=== PATIENT | male | born 1950 | race Caucasian/White ===

== ENCOUNTER 2020-07-02 12:24 | Inpatient (IN) | payer OTHER, MEDICARE ==
[~2020-07-02] VITALS: Ht 172.7 cm; Wt 64.3 kg
[2020-07-02] MEDS ORDERED: ECOT81TA5 PO (12:55)
[2020-07-02] MEDS ORDERED: OXYC-517 PO (12:55)
[2020-07-02] MEDS ORDERED: D3 +TAB PO (12:55)
[2020-07-02] MEDS ORDERED: TREL1AER PO (12:55)
[2020-07-02] MEDS ORDERED: ALBU83IN NEB (12:55)
[2020-07-02] MEDS ORDERED: DICL50TA2 PO (12:55)
[2020-07-02] MEDS ORDERED: GABA-843 PO (12:55)
--- NOTE | 2020-07-02 14:32 | REPVR ---
PROCEDURE INFORMATION: Exam: CT Head Without Contrast Exam date and time: 07/02/2020 2:12 PM Age: 70 years old Clinical indication: Syncope and collapse TECHNIQUE: Imaging protocol: Computed tomography of the head without contrast. Radiation optimization: All CT scans at this facility use at least one of these dose optimization techniques: automated exposure control; mA and/or kV adjustment per patient size (includes targeted exams where dose is matched to clinical indication); or iterative reconstruction. COMPARISON: No relevant prior studies available. FINDINGS: Brain: The brain demonstrates diffuse volume loss. There is white matter hypodensity most consistent with chronic small vessel ischemic change. No visible evolving territorial infarct. No hemorrhage. Cerebral ventricles: The ventricles are mildly enlarged in keeping with volume loss. Bones/joints: No acute calvarial fracture seen. Paranasal sinuses: Visualized sinuses are unremarkable. No fluid levels. Mastoid air cells: Visualized mastoid air cells are well aerated. Orbital cavity: Focal calcification at the right optic nerve head consistent with drusen. Soft tissues: Unremarkable. IMPRESSION: No acute intracranial abnormality seen. Electronically signed by: Landy Mosher On 07/02/2020 14:32:08 PM
[2020-07-02 14:34] LABS: BASO # 0.1 10^3/uL (0.0-0.2); BASO % 0.7 % (0.0-1.0); EOS # 0.3 10^3/uL (0.0-0.5); EOS % 4.3 % (0.0-3.0); HEMATOCRIT 49.3 % (42.0-52.0); HEMOGLOBIN 15.8 g/dl (13.5-17.5); LYMPH # 1.6 10^3/uL (1.5-5.0); MEAN CORPUSCULAR HEMOGLOBIN 32.4 pg (27.0-33.0); MEAN CORPUSCULAR VOLUME 101.2 fl (80.0-96.0); MONO # 0.6 10^3/uL (0.0-0.8); MONO % 7.7 % (0.0-5.0); NEUTROPHILS # 4.9 10^3/uL (1.5-8.5); NEUTROPHILS % 65.9 % (36.0-66.0); PLATELET COUNT, AUTOMATED 322 10^3/uL (150-450); RED BLOOD COUNT 4.87 10^6/uL (4.30-6.10); WHITE BLOOD COUNT 7.4 10^3/uL (4.0-10.0)
[2020-07-02 15:15] LABS: BLOOD UREA NITROGEN 19 MG/DL (7-18); CALCIUM LEVEL 9.6 MG/DL (8.8-10.2); CARBON DIOXIDE LEVEL 31 MEQ/L (21-32); CHLORIDE LEVEL 106 MEQ/L (98-107); CK-MB VALUE MASS 3.6 NG/ML (<3.6); CPK CREATINE PHOSPHOKINASE 61 U/L (39-308); CREATININE FOR GFR 0.77 MG/DL (0.70-1.30); GLOMERULAR FILTRATION RATE > 60.0 (>42); GLUCOSE, FASTING 90 MG/DL (70-100); MAGNESIUM LEVEL 1.9 MG/DL (1.8-2.4); POTASSIUM SERUM 4.5 MEQ/L (3.5-5.1); SODIUM LEVEL 140 MEQ/L (136-145); TROPONIN I 0.07 NG/ML (< 0.10)
[2020-07-02 17:01] VITALS: BP 141/89
--- NOTE | 2020-07-02 17:06 | HPEPDOC ---
[facility] Medical History & Physical Date of Admission Jul 02, 2020 Date of Service: Jul 02, 2020 History and Physical CHIEF COMPLAINT: DIZZINESS HPI/Hospital Course: 70M for episode of dizziness this morning, lasted about an hour. Stated had a previous episode yesterday that lasted about an hour as well. Denies chest pain, shortness of breath, headaches, N/V/D, abdominal pain. Patient was planned for admission for further evaluation and treatment but left AMA. PAST MEDICAL HISTORY: #brain aneurysm - follows with [facility] #AAA - 3.5cm #carotid artery disease - recent imaging April 2020 ALLERGIES: Please see below. REVIEW OF SYSTEMS: Negative except as per HPI. HOME MEDICATIONS: Please see below. LABORATORY DATA: See below. MICROBIOLOGY: Please see below. ASSESSMENT: 70M for two episodes near syncope/dizziness over past two days, non- vertiginous, no other associated complaints, with PMHx brain aneurysm, carotid artery disease, AAA. PLAN: Patient decided to leave AMA Prognosis: Guarded Time Spent on Discharge: 35 minutes Vital Signs Vital Signs Date Time Temp Pulse Resp B/P (MAP) Pulse Ox O2 Delivery O2 Flow Rate FiO2 07/02/20 15:30 129/83 (98) 07/02/20 15:24 89 92 07/02/20 14:43 Room Air 07/02/20 12:26 98.0 22 Laboratory Data Labs 24H Laboratory Tests 2 07/02/20 14:03: Immature Granulocyte % (Auto) 0.4, Neutrophils (%) (Auto) 65.9, Lymphocytes (%) (Auto) 21.0L, Monocytes (%) (Auto) 7.7H, Eosinophils (%) (Auto) 4.3H, Basophils (%) (Auto) 0.7, Neutrophils # (Auto) 4.9, Lymphocytes # (Auto) 1.6, Monocytes # (Auto) 0.6, Eosinophils # (Auto) 0.3, Basophils # (Auto) 0.1, Nucleated Red Blood Cells % (auto) 0.0, Anion Gap 3L, Glomerular Filtration Rate > 60.0, Calcium Level 9.6, Magnesium Level 1.9, Total Creatine Kinase 61, Creatine K inase MB 3.6, Creatine Kinase MB Relative Index 5.90H, Troponin I 0.07, Thyroid Stimulating Hormone (TSH) 2.570 07/02/20 15:48: Coronavirus (COVID-19)(PCR) NEGATIVE CBC/BMP Laboratory Tests 07/02/20 14:03 Home Medications Scheduled Aspirin (Ecotrin) 81 Mg Tablet.dr, 81 MG PO DAILY Cholecalciferol (Vitamin D3) (Vitamin D3) 1,000 Unit Tablet, 1,000 UNITS PO DAILY Fluticasone/Umeclidin/Vilanter (Trelegy Ellipta 100-62.5-25) 1 Each Blst.w.dev, 1 PUFF PO DAILY Gabapentin (Gabapentin) 300 Mg Capsule, 300 MG PO TID Scheduled PRN Albuterol Sulf (Albuterol Sulfate) 2.5 Mg/3 Ml Vial.neb, 1 VIAL NEB Q4H PRN for SOB/WHEEZING Diclofenac Potassium (Diclofenac Potassium) 50 Mg Tablet, 50 MG PO BID PRN for PAIN Oxycodone HCl (Oxycodone HCl) 5 Mg Tablet, 5 MG PO BID PRN for PAIN Allergies Coded Allergies: ibuprofen (Verified Adverse Reaction, Mild, upset stomach, 07/02/20) A-FIB/CHADSVASC A-FIB History Current/History of A-Fib/PAF?: No JEROMY CURRY MD Jul 02, 2020 17:06
[2020-07-02] MEDS ORDERED: D31000TA2 PO (17:17)
--- NOTE | 2020-07-02 23:58 | ECGEPIP ---
[facility] - ED Test Date: 2020-07-02 Pat Name: JYOTHI YATES Department: Room: - Gender: Male Tile Ditcher: : 1950 Requested By: LUDA KULKARNI Order Number: [id number] Reading MD: Rashard Cota Measurements Intervals [place] Rate: 87 P: 73 PA: 137 QRS: 49 QRSD: 100 T: 56 QT: 374 QTc: 452 Interpretive Statements SINUS RHYTHM POOR R WAVE PROGRESSION NO PRIORS FOR COMPARISON Electronically Signed on 07-02-2020 23:58:52 EST by Rashard Cota
--- NOTE | 2020-07-03 06:36 | DS.PDOC ---
Discharge Summary General Date of Admission Jul 02, 2020 at 16:56 Date of Discharge 07/02/20 Discharge Summary CHIEF COMPLAINT: DIZZINESS HPI/Hospital Course: 70M for episode of dizziness this morning, lasted about an hour. Stated had a previous episode yesterday that lasted about an hour as well. Denies chest pain, shortness of breath, headaches, N/V/D, abdominal pain. Patient was planned for admission for further evaluation and treatment but left AMA. PAST MEDICAL HISTORY: #brain aneurysm - follows with [facility] #AAA - 3.5cm #carotid artery disease - recent imaging April 2020 ALLERGIES: Please see below. REVIEW OF SYSTEMS: Negative except as per HPI. HOME MEDICATIONS: Please see below. LABORATORY DATA: See below. MICROBIOLOGY: Please see below. ASSESSMENT: 70M for two episodes near syncope/dizziness over past two days, non- vertiginous, no other associated complaints, with PMHx brain aneurysm, carotid artery disease, AAA. PLAN: Patient left AMA Prognosis: Guarded Time Spent on Discharge: 35 minutes Vital Signs/I&Os Vital Signs Date Time Temp Pulse Resp B/P (MAP) Pulse Ox O2 Delivery O2 Flow Rate FiO2 07/02/20 17:01 91 22 141/89 (106) 93 Room Air 07/02/20 12:26 98.0 Laboratory Data Labs 24H Laboratory Tests 2 07/02/20 14:03: Immature Granulocyte % (Auto) 0.4, Neutrophils (%) (Auto) 65.9, Lymphocytes (%) (Auto) 21.0L, Monocytes (%) (Auto) 7.7H, Eosinophils (%) (Auto) 4.3H, Basophils (%) (Auto) 0.7, Neutrophils # (Auto) 4.9, Lymphocytes # (Auto) 1.6, Monocytes # (Auto) 0.6, Eosinophils # (Auto) 0.3, Basophils # (Auto) 0.1, Nucleated Red Blood Cells % (auto) 0.0, Anion Gap 3L, Glomerular Filtration Rate > 60.0, Calcium Level 9.6, Magnesium Level 1.9, Total Creatine Kinase 61, Creatine Kinase MB 3.6, Creatine Kinase MB Relative Index 5.90H, Troponin I 0.07, Thyroid Stimulating Hormone (TSH) 2.570 07/02/20 15:48: Coronavirus (COVID-19)(PCR) NEGATIVE CBC/BMP Laboratory Tests 07/02/20 14:03 Discharge Medications Scheduled Aspirin (Ecotrin) 81 Mg Tablet.dr, 81 MG PO DAILY, (Reported) Cholecalciferol (Vitamin D3) (Vitamin D3) 1,000 Unit Tablet, 1,000 UNITS PO DAILY, (Reported) Fluticasone/Umeclidin/Vilanter (Trelegy Ellipta 100-62.5-25) 1 Each Blst.w.dev, 1 PUFF PO DAILY, (Reported) Gabapentin (Gabapentin) 300 Mg Capsule, 300 MG PO TID, (Reported) Scheduled PRN Albuterol Sulf (Albuterol Sulfate) 2.5 Mg/3 Ml Vial.neb, 1 VIAL NEB Q4H PRN for SOB/WHEEZING, (Reported) Diclofenac Potassium (Diclofenac Potassium) 50 Mg Tablet, 50 MG PO BID PRN for PAIN, (Reported) Oxycodone HCl (Oxycodone HCl) 5 Mg Tablet, 5 MG PO BID PRN for PAIN, (Reported) Allergies Coded Allergies: ibuprofen (Verified Adverse Reaction, Mild, upset stomach, 07/02/20) JEROMY CURRY MD Jul 03, 2020 06:36
== END 2020-07-02 17:40 | disposition left against medical advice (07) | DRG 312 ==
LOC: M ED 12:24 → M ED INP 16:56
PROVIDERS: ADMIT Internal Medicine; ATTEND Internal Medicine
DX: R55 Syncope and collapse (principal); I67.81 Acute cerebrovascular insufficiency; I71.4 Abdominal aortic aneurysm, without rupture; R42 Dizziness and giddiness; Z79.82 Long term (current) use of aspirin; Z79.899 Other long term (current) drug therapy; Z88.6 Allergy status to analgesic agent; Z20.828 Contact with and (suspected) exposure to other viral communicable diseases

== ENCOUNTER → 2020-08-11 | Outpatient (CLI) | payer OTHER, MEDICARE ==
[~2020-08-11] MED LIST: ALBU83IN NEB; D3 +TAB PO; D31000TA2 PO; DICL50TA2 PO; ECOT81TA5 PO; GABA-843 PO; OXYC-517 PO; TREL1AER PO
== END ==
LOC: M LABSMTC 10:35
PROVIDERS: ATTEND Anesthesiology
DX: Z01.812 Encounter for preprocedural laboratory examination (principal); Z20.828 Contact with and (suspected) exposure to other viral communicable diseases

== ENCOUNTER 2020-08-15 09:50 | Day surgery (SDC) | payer OTHER ==
[~2020-08-15] VITALS: Ht 172.7 cm; Wt 65.3 kg
[2020-08-15] MEDS ORDERED: NS 1,000 ML IV ONE (10:30)
[2020-08-15] MEDS ORDERED: propofoL 200 MG/20 ML VIAL As Ordered ONE (11:31)
[2020-08-15] MEDS ORDERED: fentaNYL 100 MCG/2 ML INJECTION (J3010) As Ordered ONE (11:31)
[2020-08-15] MEDS ORDERED: LIDOCAINE 2% 100MG/5ML SDV (FOR ANES.) As Ordered ONE (11:31)
--- NOTE | 2020-08-15 12:14 | ROOR ---
Patient Name: Nayan Rodriguez Procedure Date: 08/15/2020 11:55 AM Date of : 1950 Age: 70 Room: [facility] Gender: Male Note Status: Finalized Procedure: Upper GI endoscopy Indications: Surveillance for malignancy due to personal history of esophageal cancer, Dysphagia Providers: Ras Swift Jr, MD Referring MD: [facility], Admin. Requesting Provider: Medicines: Propofol per Anesthesia Complications: No immediate complications. Procedure: Pre-Anesthesia Assessment: - Prior to the procedure, a History and Physical was performed, and patient medications and allergies were reviewed. The patient is competent. The risks and benefits of the procedure and the sedation options and risks were discussed with the patient. All questions were answered and informed consent was obtained. Patient identification and proposed procedure were verified by the physician and the nurse in the pre-procedure area and in the procedure room. Mental Status Examination: alert and oriented. Airway Examination: normal oropharyngeal airway and neck mobility. Respiratory Examination: clear to auscultation. CV Examination: normal. ASA Grade Assessment: III - A patient with severe systemic disease. After reviewing the risks and benefits, the patient was deemed in satisfactory condition to undergo the procedure. The anesthesia plan was to use moderate sedation / analgesia (conscious sedation). Immediately prior to administration of medications, the patient was re-assessed for adequacy to receive sedatives. The heart rate, respiratory rate, oxygen saturations, blood pressure, adequacy of pulmonary ventilation, and response to care were monitored throughout the procedure. The physical status of the patient was re-assessed after the procedure. The Endoscope was introduced through the mouth, and advanced to the second part of duodenum. The upper GI endoscopy was accomplished without difficulty. The patient tolerated the procedure well. Findings: The upper third of the esophagus, middle third of the esophagus and lower third of the esophagus were normal. The cardia, gastric fundus and gastric body were normal. Localized mild inflammation characterized by congestion (edema), erythema, friability and granularity was found in the gastric antrum. Patchy moderate inflammation characterized by congestion (edema), erythema, friability and granularity was found in the duodenal bulb and in the first portion of the duodenum. The second portion of the duodenum was normal. Abnormal motility was noted in the middle third of the esophagus and in the lower third of the esophagus. There is spasticity of the esophageal body. The distal esophagus/lower esophageal sphincter is spastic, but gives up passage to the endoscope. Impression: - Normal upper third of esophagus, middle third of esophagus and lower third of esophagus. - Normal cardia, gastric fundus and gastric body. - Gastritis. - Duodenitis. - Normal second portion of the duodenum. - No specimens collected. Recommendation: - Discharge patient to home (ambulatory). - Return to my office at appointment to be scheduled. Procedure Code(s): --- Professional --- 04740, Esophagogastroduodenoscopy, flexible, transoral; diagnostic, including collection of specimen(s) by brushing or washing, when performed (separate procedure) Diagnosis Code(s): --- Professional --- K29.70, Gastritis, unspecified, without bleeding K29.80, Duodenitis without bleeding Z85.01, Personal history of malignant neoplasm of esophagus R13.10, Dysphagia, unspecified CPT copyright 2019 [employer]. All rights reserved. The codes documented in this report are preliminary and upon spanish moss picker review may be revised to meet current compliance requirements. Ras Swift MD Ras Swift Jr, MD 08/15/2020 12:14:34 PM Electronically signed by Ras Swift Jr, MD Number of Addenda: 0 Note Initiated On: 08/15/2020 11:55 AM Estimated Blood Loss: Estimated blood loss: none.
[2020-08-15] MEDS ORDERED: PHENYLephrine HCL 500 MCG/5 ML (100MCG/ML) SYRINGE (J2370) As Ordered ONE (12:26)
--- NOTE | 2020-08-15 12:27 | ROOR ---
Patient Name: Nayan Rodriguez Procedure Date: 08/15/2020 11:56 AM Date of : 1950 Age: 70 Room: [facility] Gender: Male Note Status: Finalized Procedure: Colonoscopy Indications: High risk colon cancer surveillance: Personal history of colonic polyps Providers: Ras Swift Jr, MD Referring MD: [facility] Mar[facility], Admin. Requesting Provider: Medicines: Propofol per Anesthesia Complications: No immediate complications. Procedure: Pre-Anesthesia Assessment: - Prior to the procedure, a History and Physical was performed, and patient medications and allergies were reviewed. The patient is competent. The risks and benefits of the procedure and the sedation options and risks were discussed with the patient. All questions were answered and informed consent was obtained. Patient identification and proposed procedure were verified by the physician and the nurse in the pre-procedure area and in the procedure room. Mental Status Examination: alert and oriented. Airway Examination: normal oropharyngeal airway and neck mobility. Respiratory Examination: clear to auscultation. CV Examination: normal. ASA Grade Assessment: III - A patient with severe systemic disease. After reviewing the risks and benefits, the patient was deemed in satisfactory condition to undergo the procedure. The anesthesia plan was to use moderate sedation / analgesia (conscious sedation). Immediately prior to administration of medications, the patient was re-assessed for adequacy to receive sedatives. The heart rate, respiratory rate, oxygen saturations, blood pressure, adequacy of pulmonary ventilation, and response to care were monitored throughout the procedure. The physical status of the patient was re-assessed after the procedure. The Colonoscope was introduced through the anus and advanced to the cecum, identified by appendiceal orifice and ileocecal valve. The colonoscopy was performed without difficulty. The patient tolerated the procedure well. The quality of the bowel preparation was adequate. Findings: The rectum, recto-sigmoid colon, transverse colon, ascending colon, cecum, appendiceal orifice and ileocecal valve appeared normal. Multiple small and large-mouthed diverticula were found in the sigmoid colon. A small polyp was found in the splenic flexure. The polyp was removed with a jumbo cold forceps. Resection and retrieval were complete. Non-bleeding external and internal hemorrhoids were found during endoscopy. The hemorrhoids were Grade II (internal hemorrhoids that prolapse but reduce spontaneously) and Grade III (internal hemorrhoids that prolapse but require manual reduction). Impression: - The rectum, recto-sigmoid colon, transverse colon, ascending colon, cecum, appendiceal orifice and ileocecal valve are normal. - Diverticulosis in the sigmoid colon. - One small polyp at the splenic flexure, removed with a jumbo cold forceps. Resected and retrieved. - Non-bleeding external and internal hemorrhoids. Recommendation: - Discharge patient to home (ambulatory). - Return to my office at appointment to be scheduled. Procedure Code(s): --- Professional --- 71629, Colonoscopy, flexible; with biopsy, single or multiple Diagnosis Code(s): --- Professional --- Z86.010, Personal history of colonic polyps K64.2, Third degree hemorrhoids K63.5, Polyp of colon K57.30, Diverticulosis of large intestine without perforation or abscess without bleeding CPT copyright 2019 [employer]. All rights reserved. The codes documented in this report are preliminary and upon bsw review may be revised to meet current compliance requirements. Ras Swift MD Ras Swift Jr, MD 08/15/2020 12:27:57 PM Electronically signed by Ras Swift Jr, MD Number of Addenda: 0 Note Initiated On: 08/15/2020 11:56 AM Estimated Blood Loss: Estimated blood loss: none.
[2020-08-15] MEDS ORDERED: ePHEDrine SULFATE 25 MG/5 ML(5MG/ML) SYRINGE As Ordered ONE (12:28)
[2020-08-15 13:32] VITALS: BP 118/66
== END 2020-08-15 13:10 | disposition home or self-care (01) ==
LOC: M OPP 09:50
PROVIDERS: ATTEND Surgery
DX: Z12.11 Encounter for screening for malignant neoplasm of colon (principal); Z86.010 Personal history of colon polyps; K64.2 Third degree hemorrhoids; K63.5 Polyp of colon; K57.30 Diverticulosis of large intestine without perforation or abscess without bleeding; R13.10 Dysphagia, unspecified; Z85.01 Personal history of malignant neoplasm of esophagus; K29.80 Duodenitis without bleeding; K29.70 Gastritis, unspecified, without bleeding
CPT/HCPCS: 43235; 45380; 88305; J2370; J3010

== ENCOUNTER → 2020-11-19 | Outpatient (CLI) | payer OTHER ==
[~2020-11-19] MED LIST changes: +GABA-282 PO; -GABA-843 PO; +ISOVUE-370 76% 100ML VIAL As Ordered ONE
[2020-11-19 09:02] LABS: GLOMERULAR FILTRATION RATE > 60.0 (>42)
--- NOTE | 2020-11-19 15:56 | REP ---
INDICATION: 6 MONTH FOLLOW UP,CEREBRAL ANEURYSM, NONRUPTURED/LABS 1ST. COMPARISON: CTA of the head 04/16/2020 outside examination.. TECHNIQUE: Multiplanar CT angiogram of the brain with MIP reformations. FINDINGS: As noted on the comparison study, there is a somewhat lobulated aneurysmal dilatation of the left MCA bifurcation, measures approximately 8 mm AP x 4 mm transverse by 3 mm cephalo caudad. The dimensions are not significantly changed from previous. On the remainder of the examination, the vertebral arteries are codominant. The basilar artery and hr payroll coordinator are unremarkable. He internal carotid arteries, proximal and distal MCA branches are unremarkable. A1 segments and NATHANAEL branches are unremarkable. IMPRESSION: 1. Again seen somewhat lobulated outpouching and aneurysmal dilatation at the left MCA bifurcation, not significantly changed from the comparison study of 04/16/2020. 2. The remainder of the CT angiogram of the brain is unremarkable. <Electronically signed by Noe Almaraz > 11/19/20 [id number]
== END ==
LOC: M LAB 08:19
PROVIDERS: ATTEND Physician Assistant Medical
DX: I67.1 Cerebral aneurysm, nonruptured (principal)
CPT/HCPCS: 36415; 70496; 82565; Q9967

== ENCOUNTER → 2021-02-14 | Outpatient (CLI) | payer OTHER ==
[~2021-02-14] MED LIST changes: +BUSP10TA PO; +HEPA10IN30 IV; +HYDR-3363 PO; -ISOVUE-370 76% 100ML VIAL As Ordered ONE; +NICO4GUM43 MT; +SERT-141 PO; +[UNRECOGNIZED DRUG - CODE] IV
== END ==
LOC: M LABSMTC 09:33
PROVIDERS: ATTEND Nurse Practitioner Family
DX: Z01.812 Encounter for preprocedural laboratory examination (principal); Z20.822 Contact with and (suspected) exposure to COVID-19

== ENCOUNTER → 2021-02-19 | Outpatient (CLI) | payer OTHER ==
[~2021-02-19] MED LIST changes: +MIDAZOLAM INJ 2MG/2ML VIAL (J2250 PER 1MG) As Ordered ONE; +PROHANCE 279.3MG/ML 15ML VIAL As Ordered ONE
--- NOTE | 2021-02-19 12:40 | REP ---
INDICATION: CERVICAL DISC DISORDER. Status post ACDF. COMPARISON: None. TECHNIQUE: Sagittal and axial T1 and T2-weighted scans are acquired in the usual fashion with and without fat saturation. Sequences include spin echo, turbo spin-echo, and STIR imaging sequences. Post gadolinium enhanced imaging is acquired. The gadolinium enhancement dose is 12 mL of intravenous ProHance. FINDINGS: There is reversal of normal cervical lordosis. Magnetic field susceptibility artifact is seen emanating from the ventral discectomy and fusion plating which is noted in place across the C4 through C7 levels. The cervical cord is normal in course, caliber and signal intensity on T1 and T2 weighted scans. Craniocervical junction is unremarkable. Axial and sagittal images taken at the C2-3 disc level demonstrate minimal central disc bulging. No other significant abnormality. At C3-C4, there is mild diffuse disc bulging. Facet hypertrophy is present bilaterally, right greater than left. There is mild diffuse disc bulging and mild bilateral uncovertebral spurring is seen producing mild bilateral neural foraminal narrowing. At C4-C5, there is posterior osteophytic ridging which indents the ventral margin of the thecal sac and the ventral margin of the cord is flattened. There is left-sided uncovertebral spurring producing left-sided neural foraminal narrowing. This is mild. At C 5 C6, there is mild diffuse disc bulging. There is some residual neural foraminal narrowing bilaterally at C5-6. No spinal stenosis or cord compression is seen. At C6-C7, there is no evidence of disc protrusion or cord compression. No neural foraminal narrowing is appreciated. At C7 T1, there is minimal diffuse disc bulging. No other finding. The there is mild diffuse disc bulging and disc space narrowing at the T2-T3 level in the upper thoracic spine. Post gadolinium enhanced images of the cervical spine show no significant intraspinal or perispinal contrast enhancement. IMPRESSION: Reversal of normal cervical lordosis with a ventral discectomy and fusion plating C4 through C7. Degenerative disc and facet changes at C3-4. Posterior osteophytic ridging C4-5. Mild neural foraminal narrowing as above. <Electronically signed by Moody Ash > 02/19/21 [id number]
--- NOTE | 2021-02-19 12:44 | REP ---
INDICATION: POST LAMIENCTOMY SYNDROME. COMPARISON: None. TECHNIQUE: Sagittal and axial T1 and T2-weighted scans are acquired in the usual fashion with and without fat saturation. Sequences include spin echo, turbo spin-echo, and STIR imaging sequences. 12 mL of intravenous ProHance is administered and post gadolinium enhanced axial and sagittal images are included. FINDINGS: Thoracic vertebral body heights are preserved. Alignment is normal. Cortical and medullary bone signal intensity are normal. The thoracic cord is normal in course, caliber and signal intensity on T1 and T2 weighted scans. The tip of the conus is normal in position and appearance at L1. At at T1-2, there is no abnormality. At T2-T3 there is central disc bulging effacing the ventral subarachnoid space. There is no other evidence of thoracic disc protrusion or significant bulging. No cord compressive lesion is seen. No thoracic neural foraminal lesion is observed. No extra-spinal abnormality is observed. Post gadolinium enhanced images show no abnormal intraspinal or perispinal contrast enhancement. IMPRESSION: Disc bulging at at T2-T3. Otherwise negative MRI study of the thoracic spine. <Electronically signed by Moody Ash > 02/19/21 [id number]
--- NOTE | 2021-02-19 12:52 | REP ---
INDICATION: POST LAMIENCTOMY SYNDROME. COMPARISON: None. TECHNIQUE: Sagittal and axial T1 and T2-weighted scans are acquired in the usual fashion with and without fat saturation. Sequences include spin echo, turbo spin-echo, and STIR imaging sequences. 12 mL of intravenous ProHance is administered and post gadolinium enhanced T1 axial and sagittal images are acquired. FINDINGS: There is straightening of the normal lumbar lordosis. Extensive fusion is seen in the thoracic spine. There are transpedicle screws with attendant metallic field susceptibility artifacts through the L2, L3, and L4 level bilaterally. Disc spacer metallic component artifacts are seen at L2-3 and L3-4. There is bony ankylosis across the L4-5 and the posterior portion of the L5-S1 disc spaces as well. Bony ankylosis of the L 5 S1 facet joints is seen bilaterally Incidental note is made of a distal abdominal aortic aneurysm which measures 3.4 cm in greatest anteroposterior dimension. At the L1-2 disc level, there is a broad-based moderate to large-sized disc bulge effacing the ventral subarachnoid space and producing mild central canal stenosis in combination with some facet hypertrophy. The midline AP dimension of the thecal sac at the L1-2 level is 9.7 mm. There is bilateral neural foraminal encroachment from foraminal segment disc bulging. Degenerative narrowing of the L1-2 disc is observed. There is minimal posterior osteophytic ridging at the fused L2-3 disc. Minimal central disc bulging is seen at L3-4. The posterior margin of the L4-5 and L5-S1 discs are fused. No neural foraminal encroachment is seen at the fused levels. Post gadolinium enhanced images show no significant intraspinal or perispinal gadolinium enhancement. IMPRESSION: 1. There is a 3.4 cm infrarenal abdominal AA aortic aneurysm. 2. Extensive lumbar spine fusion L2 through S1 with posterior element and ventral disc fusion as above. 3. Broad-based large disc bulge at L1-2 producing central canal stenosis and bilateral neural foraminal narrowing. <Electronically signed by Moody Ash > 02/19/21 [id number]
[2021-02-19 13:00] VITALS: BP 117/64
== END ==
LOC: M RAD 08:18
DX: M50.03 Cervical disc disorder with myelopathy, cervicothoracic region (principal); I71.4 Abdominal aortic aneurysm, without rupture; M99.53 Intervertebral disc stenosis of neural canal of lumbar region; M50.31 Other cervical disc degeneration, high cervical region
CPT/HCPCS: 72156; 72157; 72158; A9576; J2250

== ENCOUNTER → 2021-03-18 | Outpatient (CLI) | payer OTHER ==
[~2021-03-18] MED LIST changes: +DICL50TAB PO; +ENSULIQ9 PO; -MIDAZOLAM INJ 2MG/2ML VIAL (J2250 PER 1MG) As Ordered ONE; +NICO4GUM42 MT; -PROHANCE 279.3MG/ML 15ML VIAL As Ordered ONE; +ZOLO100T PO
== END ==
LOC: M PLARAD 09:25
PROVIDERS: ATTEND Nurse Practitioner Family
DX: C34.90 Malignant neoplasm of unspecified part of unspecified bronchus or lung (principal); Z85.01 Personal history of malignant neoplasm of esophagus; Z79.51 Long term (current) use of inhaled steroids; Z79.82 Long term (current) use of aspirin; Z79.899 Other long term (current) drug therapy; Z79.891 Long term (current) use of opiate analgesic
CPT/HCPCS: 78815; A9552

== ENCOUNTER → 2021-04-09 | Outpatient (CLI) | payer OTHER ==
[~2021-04-09] MED LIST changes: -DICL50TAB PO; -ENSULIQ9 PO; -NICO4GUM42 MT; -ZOLO100T PO
--- NOTE | 2021-04-09 16:23 | RADONC.CN ---
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 He relocated to [place] and on surveillance CT from 10/2020 was found to have a RUL nodule consistent with NSCLC versus metastasis. He underwent biopsy on 02/22/21 which returned SCC with PDL1 expression >50%, equivocal if metastasis or de hilaria primary NSCLC. He underwent PET-CT on 03/25/21 which revealed the RUL nodule as the only focus of concern. He is seen today for consideration of SBRT to the solitary RUL lesion. Diagnosis/Treatment History Oncologic History August 2019 diagnosed with [id number] distal esophageal SCC. He was deemed inoperable and underwent chemoradiation 54 Gy in 30 fractions with carbo/taxol completed in November 2019. Treatment was conducted in [place] where he had been living for many years. In early 2020 he and his relocated to [place] (where they both grew up) and he established with the [facility]. Surveillance CT scans from 10/2020 showed a solitary RUL nodule <2 cm. Subsequent studies demonstrated growth to ~ 2 cm in the absence of other foci suggestive of cancer. He underwent biopsy on 02/22/21 which showed SCC which was indeterminate as to primary NSCLC or metastasis from esophageal SCC. PDL1 was >50% (TPS). He underwent PET-CT on 03/18/21 ([facility]) which showed hypermetabolism in the RUL nodule and no additional foci concerning for metastasis. PFTs not on file, ordered Interval History Nayan reports he is on 2-4 L O2 continuously depending on level of activity. He continues to smoke. He drinks daily. He is and lives in [place]. He has no chest pain. He does have chronic back pain, as well a number of vascular concerns, such as carotid stenosis, and LE PVD. He has been having stable weight recently. He has some mild dysphagia persistent s/p chemoradiation for his esophageal cancer. Past Medical History: AAA Brain aneuysm COPD Spinal stenosis Past Surgical History: Spinal fusions C4-6 L2-S1 Family History: No contributory family cancer history Social History: Current 1-2 ppd smoker >50 pack year history Current drinker 2-3 beers per day Allergies / Meds Allergies: Coded Allergies: ibuprofen (Verified Adverse Reaction, Mild, upset stomach, 08/02/20) Home Meds Reported Medications Sodium Chloride 0.9 % (Flush) ([place] Sodium Chlor Flush) 0.9 % Syringe, 10 ML IV MTHLY, SYRINGE 02/04/21 Hydroxyzine HCl (Hydroxyzine HCl) 25 Mg Tablet, 25 MG PO DAILYPRN PRN for ANXIETY/AGITATION for 30 Days, #60 TAB 02/04/21 Heparin Sodium,Porcine/Pf (Heparin 100 Unit/10 ml (10/ml)) 10 Unit/1 Ml Syringe, 3 UNIT IV MTHLY PRN for SEE LABEL COMMENTS, SYRINGE 02/04/21 Gabapentin (Gabapentin) 300 Mg Capsule, 300 MG PO TID, CAP 02/04/21 Buspirone HCl (Buspirone HCl) 10 Mg Tablet, 10 MG PO, TAB 02/04/21 Cholecalciferol (Vitamin D3) (Vitamin D3) 1,000 Unit Tablet, 2000 UNITS PO DAILY, TAB 07/02/20 Fluticasone/Umeclidin/Vilanter (Trelegy Ellipta 100-62.5-25) 1 Each Blst.w.dev, 1 PUFF PO DAILY 07/02/20 Oxycodone HCl (Oxycodone HCl) 5 Mg Tablet, 5 MG PO BID PRN for PAIN 07/02/20 Aspirin (Ecotrin) 81 Mg Tablet.dr, 81 MG PO DAILY 07/02/20 Albuterol Sulf (Albuterol Sulfate) 2.5 Mg/3 Ml Vial.neb, 1 VIAL NEB Q4H PRN for SOB/WHEEZING 07/02/20 Review of Systems Constitutional: Denies: Chills, Fever, Fatigue Eyes: Denies: Pain HEENT: Denies: Head Aches Skin: Denies: Rash Pulmonary: Reports: Dyspnea, Cough; Denies: Pleuritic Chest Pain Cardiovascular: Reports: Orthopnea; Denies: Chest Pain, Palpitations, Edema Gastrointestinal: Denies: Abdominal Pain Hematologic: Denies: Bruising, Bleeding Excessively Endocrine: Denies: Cold Intolerance Musculoskeletal: Reports: Neck pain, Back pain Neurological: Denies: Weakness, Numbness Psych: Reports: Mood Normal Vital Signs Wt 148 lbs T 97.4 P 99 RR 20 BP 136/93 O2 88% on 2L NC Pain 0 Fatigue 0 General Exam: Alert, Cooperative, No Acute Distress Eye Exam: PERRLA EOMI ENT EXAM: Atraumatic Neck Exam: Supple Chest Exam: Clear to auscultation, Normal air movement; Negative: Rhonchi, Wheezing Heart Exam: Rate Normal, Regular Rhythm Abdomen Exam: Soft Extremity Exam: Negative: Edema Skin Exam: Nl turgor and temperature Neuro Exam: Normal Gait, Normal Speech, Cranial Nerves 3-12 NL Psych Exam: Mental status NL, Memory Intact (Excellent memory of medical history dates/times/providers), Oriented x 3 Diagnostic and Laboratory Diagnostic Review Radiologic images, relevant labs and pathology reports were personally reviewed and discussed with Mr. Rodriguez. Assessment and Plan Impression Mr. 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 He relocated to [place] and on surveillance CT from 10/2020 was found to have a RUL nodule consistent with NSCLC versus metastasis. He underwent biopsy on 02/22/21 which returned SCC with PDL1 expression >50%, equivocal if metastasis or de hilaria primary NSCLC. He underwent PET-CT on 03/25/21 which revealed the RUL nodule as the only focus of concern. He is seen today for consideration of SBRT to the solitary RUL lesion. Stage RUL NSCLC [id number] stage IA2 Performance Status ECOG 2 Plan We had an extensive discussion with Mr. Rodriguez regarding the diagnosis at hand and available therapeutic options. He has a solitary RUL nodule, indeterminate on biopsy whether SCC from esophagus or de hilaria primary NSCLC. I explained that in this situation the ultimate origin of the lesion would not change initial management from my perspective, given that it is a solitary focus, I would recommend SBRT to the lesion in either event. Decisions on whether or not he would benefit from immediate systemic therapy or more likely, observation after SBRT I defer to his medical oncologist. For treatment I will give 60 Gy in 5 fractions with DCA/4DCT/ITV planning. I wou ld then obtain a CT chest in 3 months for response assessment this could be done in conjunction with his surveillance scans for the esophageal cancer history. We discussed the logistics of receiving radiation therapy in detail including the need for a 1-time planning session. This can occur in the next week. We reviewed the side effects of SBRT, fatigue and ~5-10% risk of symptomatic pneumonitis. The peripheral location of the lesion is generally favorable such that I expect no risk of chest wall toxicity or pleuritic pain. After discussing the risks, benefits and alternatives to radiation therapy, Mr. Rodriguez was amenable to pursuing radiotherapy. All questions were answered to the patient's satisfaction. We instructed the patient that if there were any questions,concerns or changes in clinical status in the interim to contact us. Recommendations SBRT 60 Gy in 5 fractions with DCA/4DCT/ITV planning Simulation next week Billing Statement Total time of [46] minutes was spent preparing for the visit [3], obtaining HPI [13], examining the patient [2], reviewing diagnostic tests [5], discussing management options [13], coordinating care [2], and writing this note [8]. NORBERTO ISLAS MD Apr 09, 2021 16:23
== END ==
LOC: M ONCR 12:32
PROVIDERS: ATTEND General Practice
DX: C15.5 Malignant neoplasm of lower third of esophagus (principal); C34.11 Malignant neoplasm of upper lobe, right bronchus or lung; F17.210 Nicotine dependence, cigarettes, uncomplicated; G89.29 Other chronic pain; I65.29 Occlusion and stenosis of unspecified carotid artery; I67.1 Cerebral aneurysm, nonruptured; I71.4 Abdominal aortic aneurysm, without rupture; I73.9 Peripheral vascular disease, unspecified; J44.9 Chronic obstructive pulmonary disease, unspecified; M54.5 Low back pain; M48.00 Spinal stenosis, site unspecified; R13.10 Dysphagia, unspecified; Z79.899 Other long term (current) drug therapy; Z88.6 Allergy status to analgesic agent; Z92.21 Personal history of antineoplastic chemotherapy; Z92.3 Personal history of irradiation; Z98.1 Arthrodesis status; Z99.81 Dependence on supplemental oxygen

== ENCOUNTER 2021-04-13 11:29 | Inpatient (IN) | payer OTHER ==
[2021-04-13] VITALS (14 sets, daily range): BP systolic 110–168; BP diastolic 70–92; O2SAT 94
[~2021-04-13] VITALS: Ht 172.7 cm; Wt 63.5 kg
--- NOTE | 2021-04-13 12:13 | REP ---
INDICATION: CHEST PAIN COMPARISON: None. TECHNIQUE: Portable AP view of the chest FINDINGS: There is a right-sided pneumothorax of approximately 25%. The bilateral aerated lung hoffamn demonstrate chronic appearing interstitial changes. Patient has a known right upper lobe pulmonary nodule which is poorly identified by current portable chest x-ray. No effusion. The mediastinum is grossly normal and without significant contralateral shift to suggest tension pneumothorax. Left-sided Mgrwae-[id number]-Dtvs identified with tip in the SVC. Skeletal structures appear intact. IMPRESSION: Right-sided pneumothorax of approximately 25%. <Electronically signed by Teodoro Sagastume > 04/13/21 [id number]
[2021-04-13 12:18] LABS: BASO # 0.1 10^3/uL (0.0-0.2); BASO % 0.7 % (0.0-1.0); EOS # 0.2 10^3/uL (0.0-0.5); EOS % 3.5 % (0.0-3.0); HEMATOCRIT 49.9 % (42.0-52.0); HEMOGLOBIN 16.3 g/dl (13.5-17.5); LYMPH # 1.6 10^3/uL (1.5-5.0); LYMPH % 23.7 % (24.0-44.0); MEAN CORPUSCULAR HEMOGLOBIN 32.2 pg (27.0-33.0); MEAN CORPUSCULAR HGB CONC 32.7 g/dl (32.0-36.5); MEAN CORPUSCULAR VOLUME 98.6 fl (80.0-96.0); MONO # 0.6 10^3/uL (0.0-0.8); MONO % 7.9 % (2.0-8.0); NEUTROPHILS # 4.4 10^3/uL (1.5-8.5); NEUTROPHILS % 63.8 % (36.0-66.0); PLATELET COUNT, AUTOMATED 308 10^3/uL (150-450); RED BLOOD COUNT 5.06 10^6/uL (4.30-6.10); WHITE BLOOD COUNT 6.9 10^3/uL (4.0-10.0)
[2021-04-13] MEDS ORDERED: NORCO, ANEXSIA 5/325MG TABLET (HYDROcodone/ACETAMINOPHEN) PO PRN (13:00)
[2021-04-13] MEDS ORDERED: ACETAMINOPHEN TAB 650MG DOSE (2X325MG) PO PRN (13:00)
[2021-04-13] MEDS ORDERED: BISACODYL 10 MG SUPP PR PRN (13:00)
[2021-04-13] MEDS ORDERED: LEVALBUTEROL 1.25 MG/0.5 ML CONCENTRATE NEB NEB PRN (13:00)
[2021-04-13] MEDS ORDERED: ONDANSETRON 4MG/2ML VIAL IV PRN (13:00)
[2021-04-13 13:04] LABS: ALBUMIN 3.7 GM/DL (3.2-5.2); ALT/SGPT 15 U/L (12-78); BILIRUBIN,DIRECT < 0.1 MG/DL (0.0-0.2); BILIRUBIN,TOTAL 0.3 MG/DL (0.2-1.0); BLOOD UREA NITROGEN 9 MG/DL (7-18); CALCIUM LEVEL 9.3 MG/DL (8.8-10.2); CARBON DIOXIDE LEVEL 32 MEQ/L (21-32); CHLORIDE LEVEL 101 MEQ/L (98-107); CREATININE FOR GFR 0.92 MG/DL (0.70-1.30); GLOMERULAR FILTRATION RATE > 60.0 (>42); GLUCOSE, FASTING 109 MG/DL (70-100); LIPASE 201 U/L (73-393); NT-PRO BNP 490 PG/ML (<125); POTASSIUM SERUM 4.2 MEQ/L (3.5-5.1); SODIUM LEVEL 137 MEQ/L (136-145); TOTAL PROTEIN 6.9 GM/DL (6.4-8.2)
--- NOTE | 2021-04-13 13:33 | REP ---
INDICATION: pneumothorax COMPARISON: 01/24/2021 TECHNIQUE: Axial noncontrast images from the thoracic inlet to the upper abdomen with coronal and sagittal reformations. This CT examination was performed using the following dose reduction techniques: Automated exposure control, adjustment of mA and/or kv according to the patient's size, and use of iterative reconstruction technique. FINDINGS: Current examination demonstrates a moderate right pneumothorax of approximately 25-30% without mediastinal shift or pleural fluid. Minimal associated linear atelectasis in the right middle lobe and right lower lobe noted. The lung hoffman demonstrate advanced COPD/emphysematous changes with scattered significant bullae and blebs-possibly underlying cause for spontaneous pneumothorax. There is a known 1.7 cm spiculated mass in the right upper lung zone. The lung hoffman are otherwise without acute consolidation and or further mass lesion. Small noncalcified nodular densities cannot definitively be excluded based on current examination. Evaluation of the mediastinum demonstrates atherosclerotic changes to the thoracic aorta and coronary arteries without aortic aneurysm or cardiomegaly. No pericardial effusion. No obvious adenopathy is identified although evaluation is limited by the lack of contrast enhancement. A small hiatal hernia at the gastroesophageal junction is suggested. Surrounding musculoskeletal structures are intact and without acute process. Limited upper abdomen demonstrates normal bilateral adrenal glands. Evidence for prior lumbar laminectomy and posterior fixation. IMPRESSION: 1. Moderate right pneumothorax of approximately 25-30% possibly related to underlying COPD/emphysematous changes and significant bullae/blebs. 2. Known 1.7 cm spiculated mass in the right upper lobe. <Electronically signed by Teodoro Sagastume > 04/13/21 [id number]
[2021-04-13 13:49] LABS: ABG BASE EXCESS -0.2 (-2.0-2.0); ABG O2 SATURATION 96.7 % (95.0-99.0); ABG PARTIAL PRESSURE CO2 47.7 mmHg (35.0-45.0); ABG PARTIAL PRESSURE O2 88.3 mmHg (75.0-100.0); ABG STANDARD HCO3 24.3 MEQ/L (22.0-26.0); ABG TOTAL CO2 27.4 MEQ/L (23.0-31.0); ABG pH (ARTERIAL) 7.354 UNITS (7.350-7.450)
[2021-04-13] MEDS: LEVALBUTEROL 1.25 MG/0.5 ML CONCENTRATE NEB NEB SCH ×2 (13:56→19:22)
--- NOTE | 2021-04-13 14:14 | HPEPDOC ---
General Date of Admission Apr 13, 2021 at 12:58 Date of Service: Apr 13, 2021 Chief Complaint The patient is a 70-year-old male admitted with a reason for visit of Pneumothorax. Source: Patient, RN/MD History of Present Illness Mr. Rodriguez is a 70 year old meal with history of SCC of the esophagus which completed chemorads in 11/2019 and recently diagnosed RLL SCC nodule who is here for worsening dyspnea despite supplemental oxygen. Patient is chronically on 2 to 4 L of oxygen based on activity and location. On February 16, 2021, he had a lung biopsy and started to cough up blood for about 2 weeks. Then, the last few weeks, he had dyspnea and coughing up thick mucus. Otherwise, denies any recent trauma, fall, or injury. This morning, he was walking outside to the porch. He sudden had more difficulty breathing. He came inside to use the concentrator, but still had no relief. He came to the ED for evaluation. While here, he only required 2L of NC, but he was still feeling short of breath. CXR demonstrated a right sided pneumothorax approximately 25%. Dr. Murdock evaluated patient. Since patient is planning to have radiation for the RLL SCC nodule next week, Dr. Aburto son will be placing a chest tube later today. When I saw him, he was sitting up and leaning forward. He denied any an fever, abdominal pain, nausea, or diarrhea. He tells me he is still smoking, and he had to have a cigarette this morning. Patient will be admitted to PCU for pneumothorax. Home Medications Scheduled Aspirin (Ecotrin) 81 Mg Tablet., 81 MG PO DAILY, (Reported) Buspirone HCl (Buspirone HCl) 10 Mg Tablet, 10 MG PO DAILY, (Reported) Cholecalciferol (Vitamin D3) (Vitamin D3) 1,000 Unit Tablet, 2,000 UNITS PO DAILY, (Reported) Fluticasone/Umeclidin/Vilanter (Trelegy Ellipta 100-62.5-25) 1 Each Blst.w.dev, 1 PUFF PO DAILY, (Reported) Lactose-Reduced Food (Ensure Plus) 237 Ml Liquid, 237 ML PO BID, (Reported) Sertraline Hcl (Zoloft) 100 Mg Tablet, 50 MG PO DAILY, (Reported) Sodium Chloride 0.9 % (Flush) ([place] Sodium Chlor Flush) 0.9 % Syringe, 10 ML IV MTHLY, (Reported) Scheduled PRN Albuterol Sulf (Albuterol Sulfate) 2.5 Mg/3 Ml Vial.neb, 1 VIAL NEB Q4H PRN for SOB/WHEEZING, (Reported) Gabapentin (Gabapentin) 300 Mg Capsule, 300 MG PO TID PRN for PAIN LEVEL 5-10, (Reported) Heparin Sodium,Porcine/Pf (Heparin 100 Unit/10 ml (10/ml)) 10 Unit/1 Ml Syringe, 3 UNIT IV MTHLY PRN for SEE LABEL COMMENTS, (Reported) Hydroxyzine HCl (Hydroxyzine HCl) 25 Mg Tablet, 25 MG PO DAILY PRN for ANXIETY/A GITATION, (Reported) Nicotine Polacrilex (Nicotine Gum) 4 Mg Gum, 4 MG MT Q2H PRN for NICOTINE WITHDRAWAL, (Reported) Allergies Coded Allergies: ibuprofen (Verified Adverse Reaction, Mild, upset stomach, 08/02/20) Past Medical History Medical History 1. AAA 2. Brain aneurysm 3. COPD chronically on 2L to 4L of oxygen 4. Spinal stenosis 5. History of SCC of the distal esophagus s/p chemo radiation completed on 11/2019 6. RUL nodule positive for SCC, unknown if metastasis or new primary 7. Right carotid artery stenosis 8. Herniated disk in lower back and neck 9. Left rotator cuff tear 10. Cataracts Surgical History 1. Spinal fusions C4-C6 and L2-S1 2. Rotator cuff tear x2 on left Family History Father: History of brain aneurysm and cancer Mother: History of cancer Social History * Smoker: current smoker Alcohol: other (Drinks budlight daily) Drugs: denies A-FIB/CHADSVASC A-FIB History Current/History of A-Fib/PAF?: No Review of Systems Constitutional: Denies: Chills, Fever Eyes: Reports: Other (Blurry vision from cataracts) ENT: Denies: Sore Throat Skin: Denies: Rash Pulmonary: Reports: Dyspnea Cardiovascular: Reports: Other Symptoms (Chest pressure) Gastrointestinal: Denies: Nausea, Abdominal Pain, Diarrhea Genitourinary: Denies: Dysuria Hematologic: Reports: Bruising (On arms from playing with dog) Neurological: Denies: Numbness Psych: Reports: Anxiety, Depression Physical Examination General Exam: Positive: Alert, Cooperative Eye Exam: Negative: Sclera icteric ENT Exam: Positive: Atraumatic Neck Exam: Positive: Supple Chest Exam: Positive: Clear to auscultation Heart Exam: Positive: Rate Normal, Regular Rhythm Abdomen Exam: Positive: Normal bowel sounds, Soft; Negative: Tenderness Extremity Exam: Negative: Edema Neuro Exam: Positive: Normal Speech Psych Exam: Positive: Mental status NL, Mood NL Vital Signs Vital Signs Date Time Temp Pulse Resp B/P (MAP) Pulse Ox O2 Delivery O2 Flow Rate FiO2 04/13/21 12:15 Nasal Cannula 2.0 04/13/21 11:30 98.3 119 18 129/85 (100) 94 Laboratory Data Labs 24H Laboratory Tests 2 04/13/21 11:54: Immature Granulocyte % (Auto) 0.4, Neutrophils (%) (Auto) 63.8, Lymphocytes (%) (Auto) 23.7L, Monocytes (%) (Auto) 7.9, Eosinophils (%) (Auto) 3.5H, Basophils (%) (Auto) 0.7, Neutrophils # (Auto) 4.4, Lymphocytes # (Auto) 1.6, Monocytes # (Auto) 0.6, Eosinophils # (Auto) 0.2, Basophils # (Auto) 0.1, Nucleated Red Blood Cells % (auto) 0.0, Anion Gap 4L, Glomerular Filtration Rate > 60.0, Calcium Level 9.3, Total Bilirubin 0.3, Direct Bilirubin < 0.1, Aspartate Amino Transf (AST/SGOT) 18, Alanine Aminotransferase (ALT/SGPT) 15, Alkaline Phosp hatase 92, BP-Luc-H-Type Natriuretic Peptide 490H, Total Protein 6.9, Albumin 3.7, Albumin/Globulin Ratio 1.2, Lipase 201 04/13/21 12:02: POC Troponin I (Misc) 0.00 CBC/BMP Laboratory Tests 04/13/21 11:54 Assessment/Plan Mr. Rodriguez is a 70 year old meal with history of SCC of the esophagus which completed chemorads in 11/2019 and recently diagnosed RLL SCC nodule who is here for worsening dyspnea despite supplemental oxygen. He has COPD and still smoking. CT chest demonstrates blebs and bullae. Dr. Murdock was consulted by ED. Dr. Murdock will see the patient this afternoon for chest tube placement as patient has planned radiation next week. Plan / VTE VTE Prophylaxis Ordered?: Yes Plan Plan 1. Right pneumothorax -25 to 30% right pneumothorax -Thoracic surgeon, Dr. Murdock consulted by ED. Recommendations appreciated -Patient to have chest tube placed this afternoon 2. Chronic hypoxic respiratory failure -Patient at baseline oxygen requirement -Continue supplemental oxygen 3. COPD -Patient still smokes -Continue inhalers as Spiriva and Symbicort 4. Nicotine use disorder -Patient still smokes -Will add on nicotine patch 5. Anxiety/Depression -Continue Sertraline, buspirone, and PRN hydroxyzine 6. DVT ppx -Heparin Disposition: Pending clinical improvement MO WEBB DO Apr 13, 2021 13:17
[2021-04-13] MEDS ORDERED: ENSULIQ9 PO (14:20)
[2021-04-13] MEDS ORDERED: ZOLO100T PO (14:20)
[2021-04-13] MEDS ORDERED: DICL50TAB PO (14:20)
[2021-04-13] MEDS ORDERED: NICO4GUM42 MT (14:20)
[2021-04-13] MEDS ORDERED: HOME MED LIST COMPLETE! XX SCH (14:25)
[2021-04-13 14:34] LABS: RSV AMPLIFICATION NEGATIVE (NEGATIVE)
[2021-04-13] MEDS ORDERED: GABAPENTIN 300 MG CAP PO PRN (14:40)
[2021-04-13] MEDS ORDERED: hydrOXYzine 25 MG TAB PO PRN (14:40)
[2021-04-13] MEDS ORDERED: LIDOCAINE 1% MDV 20ML VIAL As Ordered ONE (15:59)
[2021-04-13] MEDS ORDERED: flumazeniL 0.5 MG/5 ML VIAL As Ordered ONE (15:59)
[2021-04-13] MEDS ORDERED: MIDAZOLAM INJ 2MG/2ML VIAL (J2250 PER 1MG) As Ordered ONE (15:59)
[2021-04-13] MEDS ORDERED: MIDAZOLAM INJ 2MG/2ML VIAL (J2250 PER 1MG) IV ONE ×2 (16:12→16:14)
[2021-04-13] MEDS ORDERED: LIDOCAINE 1% MDV 20ML VIAL SC ONE (16:15)
[2021-04-13] MEDS ORDERED: flumazeniL 0.5 MG/5 ML VIAL IV STA (16:21)
--- NOTE | 2021-04-13 16:38 | REP ---
INDICATION: S/P right chest tube placement COMPARISON: 04/13/2021 at 11:53 a.m. TECHNIQUE: Portable AP view of the chest FINDINGS: Status post right chest tube placement at the apex and previously noted pneumothorax has resolved. The lung hoffman demonstrate diffuse chronic interstitial changes. Known mass in the right upper lobe is faintly visible. No obvious acute consolidation or effusion. The mediastinum and cardiac silhouette are stable and grossly within normal limits. Pcrusz-V-Okdn identified with tip in the SVC. Skeletal structures are intact. IMPRESSION: Right apical chest tube in place and pneumothorax resolved. <Electronically signed by Teodoro Sagastume > 04/13/21 [id number]
[2021-04-13] MEDS: MOM 30ML SUSPENSION UDC PO SCH (17:03)
[2021-04-13] MEDS: SERTRALINE HCL 50 MG TAB PO SCH (17:03)
[2021-04-13] MEDS: KCL 20MEQ IN D5/NS 1000ML 1,000 ML IV SCH (17:03)
[2021-04-13] MEDS: NICOTINE 21MG/24HR 1 EA TRANSDERMAL TD SCH (17:03)
[2021-04-13] MEDS: PANTOPRAZOLE 40MG TAB (PROTONIX) PO SCH (17:03)
[2021-04-13] MEDS: busPIRone 10 MG TAB PO SCH (18:38)
[2021-04-13] MEDS: SYMBICORT 160/4.5MCG INHALER 6GM INH SCH (19:22)
[2021-04-13] MEDS: HEPARIN SOD (PORCINE) 5000UNITS/ML 1ML VIAL/SYRINGE SC SCH (20:20)
[2021-04-13] MEDS: PERCOCET 5MG/325MG TAB PO PRN ×2 (20:20→20:22)
[2021-04-13] MEDS: DOCUSATE SODIUM 100MG CAPSULE PO SCH (20:28)
--- NOTE | 2021-04-13 20:30 | ECGEPIP ---
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
[2021-04-14] VITALS (10 sets, daily range): BP systolic 121–147; BP diastolic 62–82; O2SAT 95–96
[2021-04-14] MEDS: LEVALBUTEROL 1.25 MG/0.5 ML CONCENTRATE NEB NEB SCH ×4 (01:31→19:29)
[2021-04-14] MEDS: KCL 20MEQ IN D5/NS 1000ML 1,000 ML IV SCH (01:38)
[2021-04-14] MEDS: PERCOCET 5MG/325MG TAB PO PRN ×4 (01:51→20:12)
[2021-04-14 05:30] LABS: BASO % 0.5 % (0.0-1.0); EOS # 0.2 10^3/uL (0.0-0.5); EOS % 3.7 % (0.0-3.0); LYMPH # 1.4 10^3/uL (1.5-5.0); LYMPH % 25.3 % (24.0-44.0); MEAN CORPUSCULAR HEMOGLOBIN 32.3 pg (27.0-33.0); MEAN CORPUSCULAR HGB CONC 32.6 g/dl (32.0-36.5); MEAN CORPUSCULAR VOLUME 99.1 fl (80.0-96.0); MONO # 0.4 10^3/uL (0.0-0.8); MONO % 7.2 % (2.0-8.0); NEUTROPHILS # 3.6 10^3/uL (1.5-8.5); NEUTROPHILS % 62.9 % (36.0-66.0); PLATELET COUNT, AUTOMATED 241 10^3/uL (150-450); RED BLOOD COUNT 4.34 10^6/uL (4.30-6.10); WHITE BLOOD COUNT 5.7 10^3/uL (4.0-10.0)
[2021-04-14 05:54] LABS: BLOOD UREA NITROGEN 11 MG/DL (7-18); CALCIUM LEVEL 8.9 MG/DL (8.8-10.2); CARBON DIOXIDE LEVEL 35 MEQ/L (21-32); CHLORIDE LEVEL 109 MEQ/L (98-107); CREATININE FOR GFR 0.79 MG/DL (0.70-1.30); GLOMERULAR FILTRATION RATE > 60.0 (>42); GLUCOSE, FASTING 103 MG/DL (70-100); POTASSIUM SERUM 4.4 MEQ/L (3.5-5.1); SODIUM LEVEL 143 MEQ/L (136-145)
[2021-04-14 06:09] LABS: ABG BASE EXCESS 1.3 (-2.0-2.0); ABG HCO3 28.6 MEQ/L (22.0-26.0); ABG O2 SATURATION 98.8 % (95.0-99.0); ABG PARTIAL PRESSURE CO2 56.2 mmHg (35.0-45.0); ABG STANDARD HCO3 25.7 MEQ/L (22.0-26.0); ABG TOTAL CO2 30.4 MEQ/L (23.0-31.0); ABG pH (ARTERIAL) 7.325 UNITS (7.350-7.450)
[2021-04-14] MEDS: TIOTROPIUM INHALER/CAPSULE (SPIRIVA) INH SCH (07:43)
--- NOTE | 2021-04-14 08:12 | REP ---
INDICATION: when chest tube placed COMPARISON: 04/13/2021 TECHNIQUE: PA and lateral. FINDINGS: Right apical chest tube in stable position. No obvious residual pneumothorax appreciated. Mediastinum and cardiac silhouette are within normal limits and stable. Buqaez-L-Zzxd again identified with tip in the SVC. Bilateral pleuroparenchymal changes are now identified including bibasilar atelectasis and suspected small pleural reactions. Right upper lobe mass lesion unchanged. IMPRESSION: 1. No evidence for pneumothorax. 2. New mild bibasilar atelectasis with small pleural reactions. <Electronically signed by Teodoro Sagastume > 04/14/21 0816
[2021-04-14] MEDS: DOCUSATE SODIUM 100MG CAPSULE PO SCH ×2 (08:49→20:09)
[2021-04-14] MEDS: MOM 30ML SUSPENSION UDC PO SCH (08:49)
[2021-04-14] MEDS: VITAMIN D 1,000 INTERNATIONAL UNITS TABLET PO SCH (09:12)
[2021-04-14] MEDS: ASPIRIN 81MG ENTERIC TABLET PO SCH (09:12)
[2021-04-14] MEDS: PANTOPRAZOLE 40MG TAB (PROTONIX) PO SCH (09:12)
[2021-04-14] MEDS: SERTRALINE HCL 50 MG TAB PO SCH (09:12)
[2021-04-14] MEDS: HEPARIN SOD (PORCINE) 5000UNITS/ML 1ML VIAL/SYRINGE SC SCH ×2 (09:12→20:10)
[2021-04-14] MEDS: busPIRone 10 MG TAB PO SCH (09:13)
[2021-04-14] MEDS: NICOTINE 21MG/24HR 1 EA TRANSDERMAL TD SCH (09:13)
--- NOTE | 2021-04-14 11:01 | IPNPDOC ---
Subjective Date Seen The patient was seen on 04/14/21. Subjective Chief Complaint/HPI Mr. Rodriguez is a 70 year old meal with history of SCC of the esophagus which completed chemorads in 11/2019 and recently diagnosed RLL SCC nodule who is here for worsening dyspnea despite supplemental oxygen. This morning, his breathing is better and he looks more comfortable. He reports pain from chest tube site, but that would be expected. Objective Physical Examination General Exam: Positive: Alert, Cooperative Eye Exam: Negative: Sclera icteric ENT Exam: Positive: Atraumatic Neck Exam: Positive: Supple Chest Exam: Positive: Other (He has better airation of right lung today) Heart Exam: Positive: Rate Normal, Regular Rhythm Abdomen Exam: Positive: Normal bowel sounds, Soft; Negative: Tenderness Extremity Exam: Negative: Edema Neuro Exam: Positive: Normal Speech Psych Exam: Positive: Mental status NL, Mood NL Assessment /Plan Assessment Mr. Rodriguez is a 70 year old meal with history of SCC of the esophagus which completed chemorads in 11/2019 and recently diagnosed RLL SCC nodule who is here for worsening dyspnea despite supplemental oxygen. He has COPD and still smoking. CT chest demonstrates blebs and bullae. Dr. Murdock was consulted by ED. Dr. Murdock will see the patient this afternoon for chest tube placement as patient has planned radiation next week. Plan/VTE VTE Prophylaxis Ordered?: Yes Plan 1. Right pneumothorax -25 to 30% right pneumothorax -Thoracic surgeon, Dr. Murdock consulted by ED. Recommendations appreciated -Right chest tube was placed on 04/13/21 -Today is POD #1 2. Chronic hypoxic respiratory failure -Patient at baseline oxygen requirement -Continue supplemental oxygen 3. COPD -Patient still smokes -Continue inhalers as Spiriva and Symbicort 4. Nicotine use disorder -Patient still smokes -Will add on nicotine patch 5. Anxiety/Depression -Continue Sertraline, buspirone, and PRN hydroxyzine 6. DVT ppx -Heparin Disposition: Pending clinical improvement VS, I&O, 24H, Fishbone Vital Signs/I&O Vital Signs Date Time Temp Pulse Resp B/P (MAP) Pulse Ox O2 Delivery O2 Flow Rate FiO2 04/14/21 09:42 18 97 Nasal Cannula 4.0 04/14/21 08:00 97.6 72 126/62 (83) I&O- Last 24 Hours up to 6 AM 04/14/21 06:00 Intake Total 870 ml Output Total 125 ml Balance 745 ml Laboratory Data 24H LABS Laboratory Tests 2 04/13/21 11:54: Immature Granulocyte % (Auto) 0.4, Neutrophils (%) (Auto) 63.8, Lymphocytes (%) (Auto) 23.7L, Monocytes (%) (Auto) 7.9, Eosinophils (%) (Auto) 3.5H, Basophils (%) (Auto) 0.7, Neutrophils # (Auto) 4.4, Lymphocytes # (Auto) 1.6, Monocytes # (Auto) 0.6, Eosinophils # (Auto) 0.2, Basophils # (Auto) 0.1, Nucleated Red Blood Cells % (auto) 0.0, Anion Gap 4L, Glomerular Filtration Rate > 60.0, Calcium Level 9.3, Total Bilirubin 0.3, Direct Bilirubin < 0.1, Aspartate Amino Transf (AST/SGOT) 18, Alanine Aminotransferase (ALT/SGPT) 15, Alkaline Phosphatase 92, UP-[place]-I-Type Natriuretic Peptide 490H, Total Protein 6.9, Albumin 3.7, Albumin/Globulin Ratio 1.2, Lipase 201 04/13/21 12:02: POC Troponin I (Misc) 0.00 04/13/21 13:41: Blood Gas Bicarbonate Standard 24.3, Arterial Blood pH 7.354, Arterial Blood Partial Pressure CO2 47.7H, Arterial Blood Partial Pressure O2 88.3, Arterial Blood Total CO2 27.4, Arterial Blood HCO3 26.0, Arterial Blood Base Excess -0.2, Arterial Blood Oxygen Saturation 96.7, Coronavirus (COVID-19)(PCR) NEGATIVE, Influenza Type A (RT-PCR) NEGATIVE, Influenza Type B (RT-PCR) NEGATIVE, Respiratory Syncytial Virus (PCR) NEGATIVE 04/14/21 05:00: Immature Granulocyte % (Auto) 0.4, Neutrophils (%) (Auto) 62.9, Lymphocytes (%) (Auto) 25.3, Monocytes (%) (Auto) 7.2, Eosinophils (%) (Auto) 3.7H, Basophils (%) (Auto) 0.5, Neutrophils # (Auto) 3.6, Lymphocytes # (Auto) 1.4L, Monocytes # (Auto) 0.4, Eosinophils # (Auto) 0.2, Basophils # (Auto) 0.0, Nucleated Red Blood Cells % (auto) 0.0, Anion Gap , Glomerular Filtration Rate > 60.0, Calcium Level 8.9 04/14/21 05:45: Blood Gas Bicarbonate Standard 25.7, Arterial Blood pH 7.325L, Arterial Blood Partial Pressure CO2 56.2H, Arterial Blood Partial Pressure O2 137.0H, Arterial Blood Total CO2 30.4, Arterial Blood HCO3 28.6H, Arterial Blood Base Excess 1.3, Arterial Blood Oxygen Saturation 98.8 CBC/BMP Laboratory Tests 04/13/21 11:54 04/14/21 05:00 MO WEBB DO Apr 14, 2021 11:01
[2021-04-14] MEDS: SYMBICORT 160/4.5MCG INHALER 6GM INH SCH (19:29)
[2021-04-15] VITALS (22 sets, daily range): BP systolic 94–137; BP diastolic 60–78; O2SAT 90–98
[2021-04-15] MEDS: LEVALBUTEROL 1.25 MG/0.5 ML CONCENTRATE NEB NEB SCH ×4 (01:10→19:49)
[2021-04-15 04:30] LABS: BASO % 0.3 % (0.0-1.0); EOS # 0.3 10^3/uL (0.0-0.5); HEMATOCRIT 41.8 % (42.0-52.0); HEMOGLOBIN 13.5 g/dl (13.5-17.5); LYMPH % 9.5 % (24.0-44.0); MEAN CORPUSCULAR HEMOGLOBIN 32.1 pg (27.0-33.0); MEAN CORPUSCULAR HGB CONC 32.3 g/dl (32.0-36.5); MEAN CORPUSCULAR VOLUME 99.5 fl (80.0-96.0); MONO # 0.6 10^3/uL (0.0-0.8); NEUTROPHILS # 8.1 10^3/uL (1.5-8.5); PLATELET COUNT, AUTOMATED 251 10^3/uL (150-450)
[2021-04-15 04:49] LABS: BLOOD UREA NITROGEN 11 MG/DL (7-18); CALCIUM LEVEL 8.8 MG/DL (8.8-10.2); CARBON DIOXIDE LEVEL 32 MEQ/L (21-32); CHLORIDE LEVEL 104 MEQ/L (98-107); CREATININE FOR GFR 0.72 MG/DL (0.70-1.30); GLOMERULAR FILTRATION RATE > 60.0 (>42); GLUCOSE, FASTING 98 MG/DL (70-100); POTASSIUM SERUM 4.3 MEQ/L (3.5-5.1); SODIUM LEVEL 137 MEQ/L (136-145)
[2021-04-15] MEDS: TIOTROPIUM INHALER/CAPSULE (SPIRIVA) INH SCH (07:21)
[2021-04-15] MEDS: SYMBICORT 160/4.5MCG INHALER 6GM INH SCH ×2 (07:21→19:49)
--- NOTE | 2021-04-15 08:27 | REP ---
INDICATION: carotid stenosis COMPARISON: None. TECHNIQUE: Nick scale and color Doppler evaluation using linear high frequency transducer Findings: FINDINGS: Two-dimensional nick scale and color images demonstrate occlusion of the right internal carotid artery along with significant narrowing of the proximal right external carotid artery. Narrowing of the left internal carotid and external carotid arteries also identified as detailed below. The right vertebral artery appears normal while the left vertebral artery demonstrates phasic waveform suggesting subclavian steal syndrome. ICA peak systolic velocity: Right occluded cm/s; Left 134.6 cm/s ICA diastolic velocity: Right occluded cm/s; Left 36.7 cm/s ECA peak systolic velocity: Right 174.9 cm/s; Left 228.5 cm/s CCA peak systolic velocity: Right 38.9 cm/s; Left 71.5 cm/s ICA/CCA ratio: Right NA cm/s; Left 1.88 cm/s IMPRESSION: 1. Occlusion of the right internal carotid artery. Narrowing of the left internal carotid artery approaching the 50-69% range. 2. 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 3. Increased velocities through the external carotid arteries (left greater than right) suggesting underlying elements of stenosis in the 50-69% range. <Electronically signed by Teodoro Sagastume > 04/15/21 0225
[2021-04-15] MEDS: ASPIRIN 81MG ENTERIC TABLET PO SCH (08:34)
[2021-04-15] MEDS: SERTRALINE HCL 50 MG TAB PO SCH (08:34)
[2021-04-15] MEDS: busPIRone 10 MG TAB PO SCH (08:34)
[2021-04-15] MEDS: PANTOPRAZOLE 40MG TAB (PROTONIX) PO SCH (08:34)
[2021-04-15] MEDS: VITAMIN D 1,000 INTERNATIONAL UNITS TABLET PO SCH (08:34)
[2021-04-15] MEDS: NICOTINE 21MG/24HR 1 EA TRANSDERMAL TD SCH (08:35)
[2021-04-15] MEDS: HEPARIN SOD (PORCINE) 5000UNITS/ML 1ML VIAL/SYRINGE SC SCH ×2 (08:35→20:25)
[2021-04-15] MEDS: DOCUSATE SODIUM 100MG CAPSULE PO SCH ×2 (08:36→20:25)
[2021-04-15] MEDS: MOM 30ML SUSPENSION UDC PO SCH (08:36)
--- NOTE | 2021-04-15 08:45 | REP ---
INDICATION: when chest tube placed COMPARISON: 04/14/2021 TECHNIQUE: PA and lateral. FINDINGS: Right apical chest tube in stable position. No obvious residual pneumothorax identified. Bilateral pleuroparenchymal changes remain essentially stable and without new acute process. Previously noted subtle streaky atelectasis at the left base appears improved. Cardiac silhouette is normal. [id number] again identified with tip in the SVC. Skeletal structures are intact. IMPRESSION: Mild improvement at the left base. Remainder of the pleuroparenchymal changes appear relatively stable. Known right upper lobe spiculated mass unchanged. <Electronically signed by Teodoro Sagastume > 04/15/21 [id number]
--- NOTE | 2021-04-15 09:38 | IPN ---
PROGRESS NOTE DATE: 04/14/2021 SUBJECTIVE: Mr. Rodriguez is doing well today. His pain is being well controlled at his chest tube insertion site and he is breathing well. There is no air leak and his lung is fully expanded to the chest wall on chest x-ray. His vital signs show a temperature maximum (T-max) of 97.6 with a heart rate that ranged between 72 and 78 in a sinus rhythm, respiratory rate of 16-20 with the use of accessory muscles. He is 95-97% saturated on four liters of nasal cannula, and his blood pressures are ranging between 130/82 to 121/75. His intake and output over the past 24 hours has been recorded as 870 in and nothing out for a positivity of 870 mL. He has put 5 mL out the chest tube and there is no air leak. OBJECTIVE: On physical examination, he has equal breath sounds on either side. I hear no wheezes, rhonchi or rales with normal vesicular sounds. Cardiac exam is without murmurs, clicks, gallops or rubs. I cannot feel his point of maximum impulse (PMI). S1 and S2 are normal. Abdomen is soft, nontender; bowel sounds are positive; no hepatomegaly; no costovertebral angle (CVA) tenderness. I hear no abdominal bruits. Extremities showed no pretibial edema, no calf tenderness; no differential swelling of the upper extremities. His skin is warm, dry and perfused without cyanosis or mottling including that of his nailbeds or knees. Neck is supple. There is no jugular venous distension. No subcutaneous emphysema. Trachea is midline. I have carefully felt for his carotid pulses and, indeed, he has 1+ carotid pulse on either side. I hear no bruits on either side. He reports that his right carotid is occluded. I will undertake a Doppler ultrasound of his carotids to actually confirm that as I have my suspicions that it is not. It may be that the pulse is present because of an open external carotid however. His mouth shows his mucous membranes are pink and moist. Lips and gums without lesions. Upper dentures are in place. Lower dentures are absent. There is no thrush. Eyes show pupils equal and active; extraocular movements are intact; sclerae nonicteric. Neurologic shows II-XII intact. Normal gross motor, gross sensation intact. Gait is not tested. Psychiatric shows her to be awake, alert, and oriented times three with appropriate mood and affect and conversational. His white count today is 5.7 with a hemoglobin and hematocrit of 14.0 and 43.0 slightly down from 16.3 and 49.9 yesterday. I suspect there was an element of dehydration. Platelet count is 241 and stable. Differential shows 62% neutrophils, 25% lymphocytes and 7% monocytes. There are no mature forms of toxic granulations. His electrolytes were essentially normal except for a marginally elevated total CO2 of 35. BUN and creatinine are 11 and 0.79. Glucose is 103 with a calcium of 8.9. His blood gases today show a pH of 7.325 with a pCO2 of 56, pO2 of 137 on the four liters of nasal cannula, and a base excess of 1.3. It is not surprising that he retains CO2. His chest x-ray today shows his lung fully expanded to the chest wall. I did not get a post chest tube insertion CAT scan as his pre-insertion CAT scan showed major bullae and emphysematous changes throughout. IMPRESSION: 1. Spontaneous pneumothorax, right side. 2. Chronic obstructive pulmonary disease (COPD). 3. Emphysematous bullae. 4. History of small cell carcinoma of the esophagus. 5. 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 6. Right carotid artery stenosis by report. 7. Cataracts. 8. Brain aneurysm. 9. Abdominal aortic aneurysm, 3.5 cm just before the bifurcation. PLAN AND DISCUSSION: I will take him off suction today. Hopefully, if the x-ray shows that his lung is fully expanded to the chest wall tomorrow, I will remove the tube and plan for discharge on Thursday. His radiation appointment is for Thursday. The main reason for placing the tube, even though he had a 10-15% pneumothorax, was to get the lung fully expanded to the chest wall so that he could be simulated for his stereotactic body radiation therapy (SBRT).
--- NOTE | 2021-04-15 09:38 | RO ---
OPERATIVE NOTE DATE OF OPERATION: 04/13/2021 PREPROCEDURE DIAGNOSIS: Right pneumothorax. POSTPROCEDURE DIAGNOSIS: Right pneumothorax. PROCEDURE: Insertion of an anterosuperior chest tube. SURGEON: Nathanael Murdock MD CONTINUOUS WAVE OPERATOR: ANESTHESIA: DESCRIPTION OF PROCEDURE: Under satisfactory monitored sedation achieved with 4 mg of Versed, the patient was prepped and draped in the usual sterile fashion. The 2nd rib was identified and the skin and subcutaneous tissue, and pleura were infiltrated with 1% lidocaine. Incision was made and a tunnel was created in the chest. A #20 chest tube was placed without difficulty and connected to Pleur-Evac. Chest tube was secured in the chest wall with #2 Tevdek suture. The patient tolerated the procedure well, and a chest x-ray is pending.
--- NOTE | 2021-04-15 10:56 | CR ---
CONSULTATION DATE: 04/13/2021 REASON FOR CONSULTATION: The patient was seen at the request of Dr. Zamora of the emergency room for pneumothorax and shortness of breath. HISTORY OF PRESENT ILLNESS: The patient is a 70-year-old white male who was eating breakfast on his porch today, playing a game on his cell phone when he suddenly felt chest pressure and discomfort along with increasing shortness of breath. He has a chronic cough of creamy sputum production. There is no dysphagia and he does not complain of fevers, chills or sweats. He has known esophageal carcinoma for which he has underwent radiation and chemotherapy approximately two years ago. He was found to have a new right upper lobe lesion for he which he underwent a needle biopsy in February, which showed squamous cell carcinoma consistent with his esophageal carcinoma. After the biopsy, he was coughing up some blood. Biopsy was done in [place] at the [facility]. He continues to smoke about 4 to 6 cigarettes per day, but used to smoke a pack a day of Marlboros. He is to undergo radiation therapy, which sounds like SBRT to the right upper lobe lesion later this week. His chest x-ray shows a pneumothorax only about 15%, which is confirmed by chest CT. Because he will need to have his lung up to the chest wall for his radiation localization, I will place a chest tube. PAST MEDICAL HISTORY: 1. Peripheral vascular disease manifested by (1) and abdominal aneurysm 3.5 cm in the lower aorta prior to the bifurcation. 2. Brain aneurysm. 3. Cerebrovascular disease with reported complete occlusion of the right carotid artery and 60% stenosis of the left carotid artery. See review of systems below. 4. Spinal stenosis. 5. The above squamous cell carcinoma of the esophagus. 6. Multiple herniated disks in his lower back. 7. Left rotator cuff tear un-repairable. 8. Cataracts. PAST SURGERIES: Spinal fusion of both cervical spine and lumbar spine. Rotator cuff repair in the past, bilateral carpal tunnel repairs in the last six months. HABITS: Smokes six cigarettes per day. Drinks alcohol, drinks 3 beers a day. No illicit drugs. EXPOSURES: He has two dogs, a Kofi Darnell and a Schnauzer at home. No birds or cats. 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 TRAVEL HISTORY: He is a former [place] , having spent time in [place] and [place]. Exposed to tuberculosis patients in [place]. He has a positive travel history in the [facility] and [facility]. 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 MEDICATIONS AT HOME: Aspirin 81 mg q day, buspirone 10 mg q day, calciferol vitamin D3 2000 units q day, Trelegy Ellipta 100 62.5 25 one puff q day, sertraline 50 mg q day. He is also on hydroxyzine 25 mg q day as needed anxiety. Gabapentin 300 mg three times a day as needed for pain, albuterol nebulizer q 4 hours 2.5 mg as needed for wheezing, nicotine gum q 2 hours as needed for nicotine withdrawal. ALLERGIES: IBUPROFEN resulting in gastritis. FAMILY HISTORY: Not pertinent to the acute situation. REVIEW OF SYSTEMS: Constitutional: Without fevers, chills, sweats or night sweats. Eyes: Has lost vision in his right eye a number of times where he describes the eye feels as though it is completely white rather than black. This last for one to three minutes. It was thought to be secondary to his carotid occlusion on the right. Has cataracts, status post removal, wears corrective lenses. Without prior jaundice. Nose: Without epistaxis. Respiratory: See history of present illness. Cardiac: Without myocardial infarctions. Does have peripheral vascular disease. Denies intermittent claudication. Denies palpitations, tachycardia. Gastrointestinal (GI): Without nausea or vomiting, diarrhea or constipation. He is able to eat and does not complain of dysphagia. No hematemesis or melena. Genitourinary (): Without dysuria or hematuria or prior renal stones. Endocrine: Without diabetes, without thyroid disease. Neurologic: The above transient monocular blindness, without paralyses, seizures or paresthesias. Psychiatric: Without pathological depression, anxiety or psychosis. PHYSICAL EXAMINATION: Well developed, slightly underweight white male in mild respiratory distress. Vital signs: Temperature is 98.7 with a heart rate of 92 in a sinus rhythm. Respiratory rate of 18 without the use of accessory muscles, who is 95% saturated on 4 liters nasal canula and whose blood pressure is 138/78. Eyes: Pupils equal, round and reactive to light. Extraocular motions are intact. Sclerae anicteric. Nose: Without deformity. Head: Normocephalic. Mouth shows mucous membranes to be pink and moist. Lips and commissures without lesions. There is no thrush. Neck is supple. There is no jugular venous distention. No subcutaneous emphysema. Trachea is midline. I do not hear a carotid bruit on the left or the right. He has possible carotid pulse on the left, not on the right. There is no lymphadenopathy or thyromegaly. Lungs show decreased breath sounds on the right side with index wheezing on both sides, more on the right than the left. Percussion is hyperresonant on the right side, further down on the left side. Cardiac examination: Without murmurs, clicks, gallops or rubs. I cannot feel his PMI. S1, S2 are normal. Abdomen is soft, nontender. Bowel sounds are positive. There is no hepatomegaly. No costovertebral angle (CVA) tenderness. Extremities show no pretibial edema. No calf tenderness. No differential swelling in the upper extremities. Skin is warn, dry and perfuse without cyanosis or mottling including nailbeds and knees. Neuro: CN II-XII intact with gross motor intact. Gait is not tested. Psychiatric: Alert, awake and oriented times 3 with appropriate mood and affect and conversational. INVESTIGATIONS: His white count is 6.9 with hemoglobin and hematocrit of 16.3 and 49.9 respectively. Platelet count is 308 and differential shows 63% neutrophils, 23% lymphocytes and 7% monocytes. There are no immature forms or toxic granulations. His electrolytes are normal with a BUN and creatinine of 9 and 0.92. Glucose of 109 with a calcium of 9.3. Albumin is 3.7. AST and ALT are normal. Blood gases show a pH of 7.35, pCO2 of 47 and a pO2 of 88 with a base excess of -.0.2. He is COVID negative, as well as influenza A and B negative and RSV negative. His chest x-ray shows a 10 to 15% pneumothorax which extends from the apex down to the costophrenic angle on the right side. The CT scan confirms the distribution of the pneumothorax. The upper lobe speculated lesions can clearly be seen. He has extensive emphysematous changes in the upper lobes worse on the right than the left. He looks to have a large bulla in the right upper lobe, which looks to be adherent to the chest wall. IMPRESSION: 1. Spontaneous pneumothorax, probably not related to his biopsy in February. 2. Diffuse emphysema. 3. Esophageal carcinoma, status post radiation chemotherapy. 4. Right upper lobe lesion, metastatic from the esophagus, squamous cell carcinoma 5. Cerebrovascular disease. 6. Brain aneurysm. 7. Abdominal aortic aneurysm. 8. Chronic back pain. 9. Carotid occlusion on the right and 60% occlusion on the left by report. PLAN/DISCUSSION: I will place a chest tube to relieve the pneumothorax and get his lung back to the chest wall. I am somewhat concerned about the bulla at the apex and I will stay away from there. Hopefully, he will not have persistent air leak.
[2021-04-15] MEDS: PERCOCET 5MG/325MG TAB PO PRN ×3 (11:21→20:28)
--- NOTE | 2021-04-15 12:51 | IPN ---
PROGRESS NOTE DATE: 04/15/2021 SUBJECTIVE: Mr. Rodriguez has had a fairly comfortable night. He is breathing well. His chest x-ray shows his lung fully expanded to the chest wall off suction. Vitals shows a T-max of 99.1 with a heart rate that ranges between 79 and 98, in sinus rhythm, respiratory rate of 16 to 18 without the use of accessory muscles, he is 98 to 99% saturated on 4 liters of nasal cannula. His blood pressure is ranging between 112/73 to 125/60. His intake and output over the past 24 hours has been recorded as 300 in and 587 out for a negativity of 287 ml. He has put 17 ml out the chest tube. There is no air leak. Weight today is 66.4 kilos, compared to 64.1 kilos yesterday. OBJECTIVE: He has scattered rhonchi throughout both lungs. He also has some wheezing in the upper hemithoraces anteriorly. Percussion note is full to the diaphragm. Cardiac exam is murmurs, clicks, gallops or rubs. I cannot feel his PMI. S1 and S2 are normal. Abdomen is soft, nontender. Bowel sounds are positive. There is no hepatomegaly. No CVA tenderness. Extremities show no prevertebral edema. No calf tenderness. No differential swelling of the upper extremities. Skin is warm, dry and perfused without cyanosis or mottling including that of nailbeds and knees. Neck is supple. There is no jugular venous distention. No subcutaneous emphysema. Trachea is midline. Mouth shows the mucous membranes to be pink and moist. Lips and commissures without lesions or thrush. Eyes shows pupils equal and reactive. Extraocular muscles intact. Sclera anicteric. Neurologic: Cranial nerves II-XII with gross motor intact and gross sensation intact. Gait is not tested. Psychiatric shows him to be awake, alert and oriented x3 with appropriate mood and affect and conversational. LABORATORY DATA: His white count today is 10.0 with a hemoglobin and hematocrit of 13.5 and 41.8. Platelet count is 251,000. Differential showed 81% neutrophils, 9% lymphocytes, 6% monocytes. There are no immature forms or toxic granulations. Electrolytes are normal today with a BUN and creatinine of 11 and 0.72, glucose 98 and calcium 8.8. His chest x-ray shows the lung fully expanded to the chest wall. Costophrenic angles are sharp. The mediastinum is in the midline. There is no subcutaneous emphysema. No infiltrates. IMPRESSION: 1. Spontaneous pneumothorax on the right side. 2. COPD. 3. Emphysematous bulla. 4. History of squamous cell carcinoma of the esophagus. 5. 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 6. Right carotid artery stenosis by report. 7. Cataract. 8. Brain aneurysm. 9. Abdominal aortic aneurysm. PLAN/DISCUSSION: I will remove his chest tubes today. His carotid ultrasound yesterday does show a complete occlusion of the right internal carotid artery and the left internal carotid artery having a 50 to 70% stenosis. There is possible subclavian steal from the left vertebral artery. The pulse I am feeling on the right side must be the common carotid before it gives off the external carotid. I will plan for discharge in the morning. He has an appointment with a vascular surgeon in [place] to follow-up on his carotid arteries.
--- NOTE | 2021-04-15 12:58 | IPNPDOC ---
Subjective Date Seen The patient was seen on 04/15/21. Subjective Chief Complaint/HPI Mr. Rodriguez is a 70 year old meal with history of SCC of the esophagus which completed chemorads in 11/2019 and recently diagnosed RLL SCC nodule who is here for worsening dyspnea despite supplemental oxygen. He was seen this morning prior to going down to CXR. He denies chest pain and his breathing is better. Objective Physical Examination General Exam: Positive: Alert, Cooperative Eye Exam: Negative: Sclera icteric ENT Exam: Positive: Atraumatic Neck Exam: Positive: Supple Chest Exam: Positive: Other (He has better airation of right lung today) Heart Exam: Positive: Rate Normal, Regular Rhythm Abdomen Exam: Positive: Normal bowel sounds, Soft; Negative: Tenderness Extremity Exam: Negative: Edema Neuro Exam: Positive: Normal Speech Psych Exam: Positive: Mental status NL, Mood NL Assessment /Plan Assessment Mr. Rodriguez is a 70 year old meal with history of SCC of the esophagus which completed chemorads in 11/2019 and recently diagnosed RLL SCC nodule who is here for worsening dyspnea despite supplemental oxygen. He has COPD and still smoking. CT chest demonstrates blebs and bullae. Dr. Murdock placed chest tube on 04/13/21. Plan/VTE VTE Prophylaxis Ordered?: Yes Plan 1. Right pneumothorax -25 to 30% right pneumothorax -Thoracic surgeon, Dr. Murdock consulted by ED. Recommendations appreciated -Right chest tube was placed on 04/13/21 -Today is POD #2 2. Chronic hypoxic respiratory failure -Patient at baseline oxygen requirement -Continue supplemental oxygen 3. COPD -Patient still smokes -Continue inhalers as Spiriva and Symbicort 4. Nicotine use disorder -Patient still smokes -Will add on nicotine patch 5. Anxiety/Depression -Continue Sertraline, buspirone, and PRN hydroxyzine 6. DVT ppx -Heparin Disposition: Pending clinical improvement and recommendations from Dr. Murdock VS, I&O, 24H, [facility] Vital Signs/I&O Vital Signs Date Time Temp Pulse Resp B/P (MAP) Pulse Ox O2 Delivery O2 Flow Rate FiO2 04/15/21 12:00 99.0 81 18 112/72 (85) 96 Nasal Cannula 4.0 I&O- Last 24 Hours up to 6 AM 04/15/21 06:00 Intake Total 300 ml Output Total 912 ml Balance -612 ml Laboratory Data 24H LABS Laboratory Tests 2 04/15/21 04:17: Immature Granulocyte % (Auto) 0.2, Neutrophils (%) (Auto) 81.0H, Lymphocytes (%) (Auto) 9.5L, Monocytes (%) (Auto) 6.0, Eosinophils (%) (Auto) 3.0, Basophils (%) (Auto) 0.3, Neutrophils # (Auto) 8.1, Lymphocytes # (Auto) 1.0L, Monocytes # (Auto) 0.6, Eosinophils # (Auto) 0.3, Basophils # (Auto) 0.0, Nucleated Red Blood Cells % (auto) 0.0, Anion Gap 1L, Glomerular Filtration Rate > 60.0, Calcium Level 8.8 CBC/BMP Laboratory Tests 04/15/21 04:17 MO WEBB DO Apr 15, 2021 12:58
[2021-04-16] VITALS: BP 142/67
[2021-04-16] MEDS: LEVALBUTEROL 1.25 MG/0.5 ML CONCENTRATE NEB NEB SCH ×2 (00:56→07:07)
[2021-04-16 04:00] VITALS: BP 139/64
[2021-04-16 05:29] LABS: BASO % 0.5 % (0.0-1.0); EOS # 0.4 10^3/uL (0.0-0.5); EOS % 4.4 % (0.0-3.0); HEMATOCRIT 39.4 % (42.0-52.0); HEMOGLOBIN 12.9 g/dl (13.5-17.5); LYMPH # 1.2 10^3/uL (1.5-5.0); LYMPH % 13.6 % (24.0-44.0); MEAN CORPUSCULAR HEMOGLOBIN 32.6 pg (27.0-33.0); MEAN CORPUSCULAR HGB CONC 32.7 g/dl (32.0-36.5); MEAN CORPUSCULAR VOLUME 99.5 fl (80.0-96.0); MONO # 0.5 10^3/uL (0.0-0.8); MONO % 6.1 % (2.0-8.0); NEUTROPHILS # 6.4 10^3/uL (1.5-8.5); PLATELET COUNT, AUTOMATED 227 10^3/uL (150-450); RED BLOOD COUNT 3.96 10^6/uL (4.30-6.10); WHITE BLOOD COUNT 8.6 10^3/uL (4.0-10.0)
[2021-04-16 05:48] LABS: BLOOD UREA NITROGEN 16 MG/DL (7-18); CALCIUM LEVEL 8.8 MG/DL (8.8-10.2); CARBON DIOXIDE LEVEL 32 MEQ/L (21-32); CHLORIDE LEVEL 103 MEQ/L (98-107); CREATININE FOR GFR 0.74 MG/DL (0.70-1.30); GLOMERULAR FILTRATION RATE > 60.0 (>42); GLUCOSE, FASTING 103 MG/DL (70-100); POTASSIUM SERUM 3.8 MEQ/L (3.5-5.1); SODIUM LEVEL 137 MEQ/L (136-145)
[2021-04-16] MEDS: TIOTROPIUM INHALER/CAPSULE (SPIRIVA) INH SCH (07:07)
[2021-04-16] MEDS: SYMBICORT 160/4.5MCG INHALER 6GM INH SCH (07:07)
[2021-04-16 08:08] VITALS: BP 130/64
[2021-04-16] MEDS: NICOTINE 21MG/24HR 1 EA TRANSDERMAL TD SCH (08:32)
[2021-04-16] MEDS: MOM 30ML SUSPENSION UDC PO SCH (08:32)
[2021-04-16] MEDS: HEPARIN SOD (PORCINE) 5000UNITS/ML 1ML VIAL/SYRINGE SC SCH (08:32)
[2021-04-16] MEDS: PANTOPRAZOLE 40MG TAB (PROTONIX) PO SCH (08:33)
[2021-04-16] MEDS: busPIRone 10 MG TAB PO SCH (08:33)
[2021-04-16] MEDS: DOCUSATE SODIUM 100MG CAPSULE PO SCH (08:33)
[2021-04-16] MEDS: ASPIRIN 81MG ENTERIC TABLET PO SCH (08:33)
[2021-04-16] MEDS: VITAMIN D 1,000 INTERNATIONAL UNITS TABLET PO SCH (08:33)
[2021-04-16] MEDS: SERTRALINE HCL 50 MG TAB PO SCH (08:33)
--- NOTE | 2021-04-16 08:58 | REP ---
INDICATION: when chest tube placed COMPARISON: 04/15/2021 TECHNIQUE: PA and lateral. FINDINGS: Mild linear atelectasis at the left base is now appreciated. Pleuroparenchymal changes are otherwise stable. Right apical chest tube has been removed and no obvious pneumothorax is identified. Known right upper lobe lung lesion unchanged. Mediastinum and cardiac silhouette are stable and within normal limits. [id number]-[id number] again identified with tip in the SVC. Skeletal structures are intact. IMPRESSION: New mild linear atelectasis at the left base. <Electronically signed by Teodoro Sagastume > 04/16/21 0831
--- NOTE | 2021-04-16 09:03 | DSES ---
DISCHARGE SUMMARY DATE OF ADMISSION: 04/13/2021 DATE OF DISCHARGE: 04/16/2021 DISCHARGE DIAGNOSES: 1. Spontaneous pneumothorax, right side. 2. Severe COPD. 3. Emphysematous bulla. 4. History of squamous cell carcinoma of the esophagus. 5. 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 6. Right carotid artery stenosis. 7. Cataract. 8. Brain aneurysm. 9. Aortic aneurysm. 10.Right internal carotid artery occlusion. 11.Left carotid artery stenosis. HOSPITAL COURSE: Patient is a 70-year-old white male who sought medical attention in the Emergency Room when he became short of breathing eating breakfast. He felt a sudden chest pressure and discomfort along with the increasing shortness of breath. He has had a chronic cough with creamy sputum production. There were no fevers, chills or sweats. He has known esophageal carcinoma for which he has undergone radiation and chemotherapy approximately two years ago and was found to have a new right upper lobe lesion for which he underwent a needle biopsy in February. Squamous cell carcinoma was consistent with the esophageal carcinoma. He has continued to smoke four to six cigarettes per day. He was found to have a 10 to 15% pneumothorax. Because he was to undergo radiation simulation this week, it was thought best to place a chest tube to fully expand the lung to the chest wall, therefore a chest tube was placed without difficulty. There was no air leak and the chest tube was removed from the second hospital day. His discharge chest x-ray shows the lung fully expanded to the chest wall. His discharge hemoglobin and hematocrit are 12.9 and 39.4 with a white count of 8.6 and a platelet count of 227. Discharge electrolytes are normal with a BUN and creatinine of 16 and 0.74. As noted above, his chest x-ray shows his lung fully expanded to chest wall. A chest CT done after placement of the chest tube showed severe emphysematous disease with right upper lobe bulla. There was probably the nascence of his pneumothorax. He is being discharged home today on his home medications of Albuterol 2.5 mg nebulizer q. 4 hours p.r.n. wheezing, aspirin 81 mg q. day, Buspirone 10 mg q. day, Cholecalciferol, vitamin D 200 units q. day, Trelegy Ellipta 10-62.5-25 one puff q. day, Gabapentin 300 mg t.i.d., hydroxyzine 25 mg q. day, nicotine gum 4 mg p.r.n. withdrawal, Sertraline 50 mg q. day. I will see him back in the office in follow-up in 10 days with a chest x-ray. He has been instructed to see radiation therapy tomorrow for his appointment.
== END 2021-04-16 10:55 | disposition home health service (06) | DRG 200 ==
LOC: M ED 11:29 → M ED INP 12:58 → ENRESERV 15:14 → M PCU 15:56
PROVIDERS: ADMIT Internal Medicine; ATTEND Internal Medicine
PROC: 0W9930Z Drainage of Right Pleural Cavity with Drainage Device, Percutaneous Approach (ICD-10-PCS; principal; 2021-04-13)
DX: J93.83 Other pneumothorax (principal); C78.01 Secondary malignant neoplasm of right lung; J96.11 Chronic respiratory failure with hypoxia; Z99.81 Dependence on supplemental oxygen; J44.9 Chronic obstructive pulmonary disease, unspecified; M48.00 Spinal stenosis, site unspecified; Z85.01 Personal history of malignant neoplasm of esophagus; Z92.3 Personal history of irradiation; Z92.21 Personal history of antineoplastic chemotherapy; I65.21 Occlusion and stenosis of right carotid artery; Z98.1 Arthrodesis status; F17.210 Nicotine dependence, cigarettes, uncomplicated; F10.10 Alcohol abuse, uncomplicated; Z20.822 Contact with and (suspected) exposure to COVID-19; F41.9 Anxiety disorder, unspecified; F32.9 Major depressive disorder, single episode, unspecified; I71.4 Abdominal aortic aneurysm, without rupture; I73.9 Peripheral vascular disease, unspecified

== ENCOUNTER 2021-05-10 13:15 | Outpatient (RCR) | payer OTHER ==
[~2021-05-10 13:15] MED LIST changes: +DICL50TAB PO; +ENSULIQ9 PO; +NICO4GUM42 MT; +ZOLO100T PO
== END 2021-05-16 ==
LOC: M ONCR 13:15
PROVIDERS: ATTEND General Practice
DX: C34.11 Malignant neoplasm of upper lobe, right bronchus or lung (principal)

== ENCOUNTER → 2021-06-04 | Outpatient (CLI) | payer OTHER ==
--- NOTE | 2021-06-04 12:55 | REP ---
INDICATION: OTHER PNEUMOTHORAX COMPARISON: 04/16/2021 TECHNIQUE: PA and lateral. FINDINGS: Mediastinum and cardiac silhouette are stable. [id number] identified with tip in the SVC. Lung hoffman demonstrate chronic appearing changes including linear scarring at the right apex and left base. There is no evidence for consolidation, or pneumothorax. No definite effusion. Skeletal structures are intact. IMPRESSION: Chronic appearing changes. No pneumothorax identified. <Electronically signed by Teodoro Sagastume > 06/04/21 [id number]
== END ==
LOC: M PLAIMG 12:00
PROVIDERS: ATTEND Thoracic Surgery (Cardiothoracic Vascular Surgery)
DX: J93.83 Other pneumothorax (principal)

== ENCOUNTER → 2021-07-29 | Outpatient (CLI) | payer OTHER ==
[2021-07-29 14:39] LABS: ALBUMIN 3.5 GM/DL (3.2-5.2); ALT/SGPT 21 U/L (12-78); BILIRUBIN,TOTAL 0.2 MG/DL (0.2-1.0); BLOOD UREA NITROGEN 18 MG/DL (7-18); CALCIUM LEVEL 9.7 MG/DL (8.8-10.2); CARBON DIOXIDE LEVEL 33 MEQ/L (21-32); CHLORIDE LEVEL 105 MEQ/L (98-107); CREATININE FOR GFR 0.87 MG/DL (0.70-1.30); GLOMERULAR FILTRATION RATE > 60.0 (>42); GLUCOSE, FASTING 97 MG/DL (70-100); POTASSIUM SERUM 3.9 MEQ/L (3.5-5.1); SODIUM LEVEL 141 MEQ/L (136-145); TOTAL PROTEIN 7.1 GM/DL (6.4-8.2)
== END ==
LOC: M ONCR 12:52
PROVIDERS: ATTEND General Practice
DX: C34.11 Malignant neoplasm of upper lobe, right bronchus or lung (principal)

== ENCOUNTER → 2021-08-05 | Outpatient (CLI) | payer OTHER ==
[~2021-08-05] MED LIST changes: +ISOVUE-370 76% 100ML VIAL As Ordered ONE
== END ==
LOC: M RAD 11:00
PROVIDERS: ATTEND General Practice
DX: C34.11 Malignant neoplasm of upper lobe, right bronchus or lung (principal); Z92.3 Personal history of irradiation
CPT/HCPCS: 71260; Q9967

== ENCOUNTER → 2021-08-07 | Outpatient (CLI) | payer OTHER ==
[~2021-08-07] MED LIST changes: -ISOVUE-370 76% 100ML VIAL As Ordered ONE
--- NOTE | 2021-08-07 13:19 | RADONC ---
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 He relocated to [place] and on surveillance CT from 10/2020 was found to have a RUL nodule consistent with NSCLC versus metastasis. He underwent biopsy on 02/22/21 which returned SCC with PDL1 expression >50%, equivocal if metastasis or de hilaria primary NSCLC. He underwent PET-CT on 03/25/21 which revealed the RUL nodule as the only focus of concern. He had SBRT to the RUL lesion 60 Gy in 5 fractions completed 05/06/21-05/10/21. Diagnosis/Treatment History Oncologic History August 2019 diagnosed with pD2T2G2 distal esophageal SCC. He was deemed inoperable and underwent chemoradiation 54 Gy in 30 fractions with carbo/taxol completed in November 2019. Treatment was conducted in [place] where he had been living for many years. In early 2020 he and his relocated to [place] (where they both grew up) and he established with the [facility]. Surveillance CT scans from 10/2020 showed a solitary RUL nodule <2 cm. Subsequent studies demonstrated growth to ~ 2 cm in the absence of other foci suggestive of cancer. He underwent biopsy on 02/22/21 which showed SCC which was indeterminate as to primary NSCLC or metastasis from esophageal SCC. PDL1 was >50% (TPS). He underwent PET-CT on 03/18/21 ([facility]) which showed hypermetabolism in the RUL nodule and no additional foci concerning for metastasis. 05/06/21-05/10/21 SBRT 60 Gy in 5 fractions to the RUL nodule Recent data: 08/05/21 CT chest FINDINGS: There is no mediastinal or hilar adenopathy. There are no pleural or pericardial effusions. The imaged upper abdomen is within normal limits. There is no change in the imaged osseous structures. Evaluation of the lung hoffman shows advanced emphysematous changes in the lung apical regions right greater than left. There are pleural blebs and parenchymal bulla. The spiculated lesion in the right upper lobe has gotten slightly smaller today measuring approximately 1.1 cm previously 1.7 cm. The right-sided pneumothorax seen previously has resolved. No new abnormal nodules, masses, or opacities have developed. The tip of the MediPort device remains in the superior vena cava. IMPRESSION: 1. The right upper lobe spiculated nodule has gotten smaller as described above. 2. There are emphysematous changes as described above. 3. Other findings as described above. Survivorship: Test Due Next Last result Notes TSH, T4* 6m post-tx, then q1y N/A Carotid US* q10 y post-tx N/A Smoking cessation Assess annually if applicable January 2022 Today not interested Chest imaging As indicated, indefinite CT surveillance January 2022 08/05/21 Negative Mammograms Min q1y, in eligible female patients N/A Echocardiogram q10y post treatment if mediastinum treated N/A PFTs As indicated PRN CBC,CMP, Lipids q1y Per PCP Silke Harris [place] Interval History Nayan reports ongoing fatigue. On 2L NC at all times. Winded very easily. Appetite good weight stable. Has trelegy and rescue inhaler. Has nebulizer tx, only using at night. Current Therapy Surveillance Stage RUL NSCLC [id number] stage IA2 Social History: Current 1-2 ppd smoker >50 pack year history Current drinker 2-3 beers per day Allergies / Meds Allergies: Coded Allergies: ibuprofen (Verified Adverse Reaction, Mild, upset stomach, 08/02/20) Home Meds Reported Medications Sertraline Hcl (Zoloft) 100 Mg Tablet, 50 MG PO DAILY, TAB 04/13/21 Lactose-Reduced Food (Ensure Plus) 237 Ml Liquid, 237 ML PO BID, CONTAINER 04/13/21 Nicotine Polacrilex (Nicotine Gum) 4 Mg Gum, 4 MG MT Q2H PRN for NICOTINE WITHDRAWAL, GUM 04/13/21 Sodium Chloride 0.9 % (Flush) ([place] Sodium Chlor Flush) 0.9 % Syringe, 10 ML IV MTHLY, SYRINGE 02/04/21 Hydroxyzine HCl (Hydroxyzine HCl) 25 Mg Tablet, 25 MG PO DAILY PRN for A NXIETY/AGITATION 02/04/21 Heparin Sodium,Porcine/Pf (Heparin 100 Unit/10 ml (10/ml)) 10 Unit/1 Ml Syringe, 3 UNIT IV MTHLY PRN for SEE LABEL COMMENTS, SYRINGE 02/04/21 Gabapentin (Gabapentin) 300 Mg Capsule, 300 MG PO TID PRN for PAIN LEVEL 5-10 02/04/21 Buspirone HCl (Buspirone HCl) 10 Mg Tablet, 10 MG PO DAILY 02/04/21 Cholecalciferol (Vitamin D3) (Vitamin D3) 1,000 Unit Tablet, 2000 UNITS PO DAILY, TAB 07/02/20 Fluticasone/Umeclidin/Vilanter (Trelegy Ellipta 100-62.5-25) 1 Each Blst.w.dev, 1 PUFF PO DAILY 07/02/20 Aspirin (Ecotrin) 81 Mg Tablet.dr, 81 MG PO DAILY 07/02/20 Albuterol Sulf (Albuterol Sulfate) 2.5 Mg/3 Ml Vial.neb, 1 VIAL NEB Q4H PRN for SOB/WHEEZING 07/02/20 Review of Systems Review of Systems Constitutional: Reports: Fatigue, Normal appetite; Denies: Weight Loss HEENT: Denies: Head Aches Pulmonary: Reports: Dyspnea, Cough; Denies: Pleuritic Chest Pain Cardiovascular: Denies: Chest Pain, Edema Musculoskeletal: Reports: Back pain; Denies: Neck pain Neurological: Denies: Weakness, Numbness Psych: Reports: Mood Normal Physical Examination Vital Signs Wt 152 lbs (from 142 lbs on 05/06/21) T 97.6 P 110 RR 19 BP 126/85 O2 96% on 2L Pain 7 back, chronic Fatigue 9 General Exam: Alert, Cooperative, No Acute Distress Eye Exam: PERRLA, EOMI Neck Exam: Supple Chest Exam: Clear to auscultation, Normal air movement Heart Exam: Rate Normal, Regular Rhythm Extremity Exam: Negative: Edema Skin Exam: Nl turgor and temperature Neuro Exam: Normal Gait, Normal Speech, Cranial Nerves 3-12 NL Psych Exam: Mental status NL Diagnostic and Laboratory Diagnostic Review Radiologic images, relevant labs and pathology reports were personally reviewed and discussed with Mr. Rodriguez. Assessment and Plan Impression Assessment Mr. 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 He relocated to [place] and on surveillance CT from 10/2020 was found to have a RUL nodule consistent with NSCLC versus metastasis. He underwent biopsy on 02/22/21 which returned SCC with PDL1 expression >50%, equivocal if metastasis or de hilaria primary NSCLC. He underwent PET-CT on 03/25/21 which revealed the RUL nodule as the only focus of concern. He had SBRT to the RUL lesion 60 Gy in 5 fractions completed 05/06/21-05/10/21. His treated RUL lesion is in radiographic response, and there are no additional lesions of concern in the chest on the present scan from 08/05/21. He has increasing weight, reports no edema, thinks his breathing is worse, but no radiographic or clinical pneumonitis from SBRT. Suspect progression of his COPD. I discussed he would benefit from smoking cessation (4m) he politely declined to consider quitting. In lieu of that, I encouraged him to increase his O2 flow rate when active which should help the fatigue associated with doing things. He could also use his nebulizer QID, rather than only QHS. He said he would try the above measures. I will send this note and the recent CT report to [facility]. I will order a CT chest for 6 months from now and see Nayan back at that time. Performance Status ECOG 2 Plan [address] chest Mr. Rodriguez was encouraged to call with questions or concerns in the interim period. Billing Statement Total time of [27] minutes was spent preparing for the visit [1], obtaining HPI [5], examining the patient [2], reviewing diagnostic tests [4], discussing management options [5], coordinating care [4], and writing this note [6]. NORBERTO ISLAS MD Aug 07, 2021 13:19
== END ==
LOC: M ONCR 12:31
PROVIDERS: ATTEND General Practice
DX: C34.11 Malignant neoplasm of upper lobe, right bronchus or lung (principal); F17.210 Nicotine dependence, cigarettes, uncomplicated; Z92.3 Personal history of irradiation; Z92.21 Personal history of antineoplastic chemotherapy; Z79.899 Other long term (current) drug therapy

== ENCOUNTER 2021-08-27 10:16 | Emergency (ER) | payer OTHER ==
[~2021-08-27] VITALS: Ht 172.7 cm; Wt 70.2 kg
[2021-08-27 10:17] VITALS: BP 152/83
[2021-08-27] MEDS ORDERED: PERCOCET 5MG/325MG TAB PO ONE (11:40)
[2021-08-27] MEDS ORDERED: ISOVUE-370 76% 100ML VIAL As Ordered ONE (11:47)
[2021-08-27 11:51] LABS: HEMATOCRIT 47.8 % (42.0-52.0); HEMOGLOBIN 15.1 g/dl (13.5-17.5); MEAN CORPUSCULAR HGB CONC 31.6 g/dl (32.0-36.5); MEAN CORPUSCULAR VOLUME 98.2 fl (80.0-96.0); PLATELET COUNT, AUTOMATED 282 10^3/uL (150-450); RED BLOOD COUNT 4.87 10^6/uL (4.30-6.10)
[2021-08-27 12:51] LABS: ALT/SGPT 24 U/L (12-78); BILIRUBIN,DIRECT < 0.1 MG/DL (0.0-0.2); BILIRUBIN,TOTAL 0.2 MG/DL (0.2-1.0); LIPASE 153 U/L (73-393); TOTAL PROTEIN 7.3 GM/DL (6.4-8.2)
== END 2021-08-27 13:54 | disposition home or self-care (01) ==
LOC: M ED 11:45
DX: R30.0 Dysuria (principal); M54.50 Low back pain, unspecified; I10 Essential (primary) hypertension; J44.9 Chronic obstructive pulmonary disease, unspecified; Z86.73 Personal history of transient ischemic attack (TIA), and cerebral infarction without residual deficits; Z85.118 Personal history of other malignant neoplasm of bronchus and lung; Z79.899 Other long term (current) drug therapy; Z79.82 Long term (current) use of aspirin; Z88.8 Allergy status to other drugs, medicaments and biological substances; F17.210 Nicotine dependence, cigarettes, uncomplicated
CPT/HCPCS: 36415; 71046; 74177; 80047; 80076; 81001; 83605; 83690; 85027; 99283; Q9967

== ENCOUNTER → 2021-09-23 | Outpatient (CLI) | payer OTHER | LOC: M PLARAD 13:42 | DX: C34.90 Malignant neoplasm of unspecified part of unspecified bronchus or lung (principal); J43.9 Emphysema, unspecified; C78.89 Secondary malignant neoplasm of other digestive organs; I25.10 Atherosclerotic heart disease of native coronary artery without angina pectoris; Z98.1 Arthrodesis status | CPT/HCPCS: 78815; A9552 ==

== ENCOUNTER → 2022-01-29 | Outpatient (CLI) | payer OTHER ==
[~2022-01-29] MED LIST changes: +ALBU2.5V10 NEB; -ALBU83IN NEB; -D31000TA2 PO; +ISOVUE-370 76% 100ML VIAL As Ordered ONE; +VITA100093 PO
== END ==
LOC: M RAD 10:46
PROVIDERS: ATTEND General Practice
DX: C34.11 Malignant neoplasm of upper lobe, right bronchus or lung (principal); K20.90 Esophagitis, unspecified without bleeding; I25.10 Atherosclerotic heart disease of native coronary artery without angina pectoris
CPT/HCPCS: 71260; Q9967

== ENCOUNTER → 2022-02-05 | Outpatient (CLI) | payer OTHER ==
[~2022-02-05] MED LIST changes: -ISOVUE-370 76% 100ML VIAL As Ordered ONE
== END ==
LOC: M ONCR 12:52
PROVIDERS: ATTEND General Practice
DX: C34.11 Malignant neoplasm of upper lobe, right bronchus or lung (principal); Z85.01 Personal history of malignant neoplasm of esophagus; R53.83 Other fatigue; F17.210 Nicotine dependence, cigarettes, uncomplicated; G89.29 Other chronic pain; F40.240 Claustrophobia; Z79.51 Long term (current) use of inhaled steroids; Z79.82 Long term (current) use of aspirin; Z79.899 Other long term (current) drug therapy; Z92.3 Personal history of irradiation; Z88.6 Allergy status to analgesic agent

== ENCOUNTER → 2022-03-20 | Outpatient (CLI) | payer OTHER ==
[2022-03-20 12:23] LABS: BLOOD UREA NITROGEN 17 MG/DL (7-18); CREATININE FOR GFR 0.92 MG/DL (0.70-1.30); GLOMERULAR FILTRATION RATE > 60.0 (>42)
== END ==
LOC: M LAB 10:36
PROVIDERS: ATTEND Physician Assistant Medical
DX: I67.1 Cerebral aneurysm, nonruptured (principal)

== ENCOUNTER → 2022-03-26 | Outpatient (CLI) | payer OTHER ==
[~2022-03-26] MED LIST changes: +ISOVUE-370 76% 100ML VIAL As Ordered ONE
== END ==
LOC: M RAD 12:32
PROVIDERS: ATTEND Physician Assistant Medical
DX: I67.1 Cerebral aneurysm, nonruptured (principal)
CPT/HCPCS: 70496; Q9967

== ENCOUNTER → 2022-06-23 | Outpatient (CLI) | payer OTHER ==
[~2022-06-23] MED LIST changes: -ISOVUE-370 76% 100ML VIAL As Ordered ONE
[2022-06-23 16:27] LABS: ALBUMIN 3.7 GM/DL (3.2-5.2); ALT/SGPT 23 U/L (12-78); BILIRUBIN,TOTAL 0.4 MG/DL (0.2-1.0); BLOOD UREA NITROGEN 19 MG/DL (7-18); CALCIUM LEVEL 9.1 MG/DL (8.8-10.2); CARBON DIOXIDE LEVEL 30 MEQ/L (21-32); CHLORIDE LEVEL 101 MEQ/L (98-107); CREATININE FOR GFR 1.19 MG/DL (0.70-1.30); GLOMERULAR FILTRATION RATE > 60.0 (>42); GLUCOSE, FASTING 106 MG/DL (70-100); SODIUM LEVEL 136 MEQ/L (136-145); TOTAL PROTEIN 7.1 GM/DL (6.4-8.2)
== END ==
LOC: M ONCR 13:26
PROVIDERS: ATTEND General Practice
DX: C34.11 Malignant neoplasm of upper lobe, right bronchus or lung (principal)

== ENCOUNTER → 2022-07-22 | Outpatient (CLI) | payer OTHER ==
[~2022-07-22] MED LIST changes: +ISOVUE-370 76% 100ML VIAL As Ordered ONE
== END ==
LOC: M RAD 08:07
PROVIDERS: ATTEND General Practice
DX: C34.11 Malignant neoplasm of upper lobe, right bronchus or lung (principal)
CPT/HCPCS: 71260; Q9967

== ENCOUNTER → 2022-08-05 | Outpatient (CLI) | payer OTHER ==
[~2022-08-05] MED LIST changes: -ISOVUE-370 76% 100ML VIAL As Ordered ONE
== END ==
LOC: M ONCR 12:33
PROVIDERS: ATTEND General Practice
DX: C34.11 Malignant neoplasm of upper lobe, right bronchus or lung (principal); F17.210 Nicotine dependence, cigarettes, uncomplicated; Z79.82 Long term (current) use of aspirin; Z79.51 Long term (current) use of inhaled steroids; Z79.899 Other long term (current) drug therapy; Z85.01 Personal history of malignant neoplasm of esophagus; Z88.6 Allergy status to analgesic agent; Z92.21 Personal history of antineoplastic chemotherapy; Z92.3 Personal history of irradiation

== ENCOUNTER 2022-11-27 08:17 | Day surgery (SDC) | payer MEDICARE, OTHER ==
[~2022-11-27] VITALS: Ht 172.7 cm; Wt 71.7 kg
[~2022-11-27 08:17] MED LIST changes: +NS 1,000 ML IV ONE; +TAMS1CAP17 PO
[2022-11-27] MEDS ORDERED: fentaNYL 100 MCG/2 ML INJECTION As Ordered ONE (09:18)
[2022-11-27] MEDS ORDERED: LIDOCAINE 2% 100MG/5ML SDV (FOR ANES.) As Ordered ONE (09:18)
[2022-11-27] MEDS ORDERED: propofoL 200 MG/20 ML VIAL As Ordered ONE (09:18)
[2022-11-27 09:44] VITALS: BP 158/81
== END 2022-11-27 09:55 | disposition home or self-care (01) ==
LOC: M OPP 08:17
PROVIDERS: ATTEND Surgery
DX: K44.9 Diaphragmatic hernia without obstruction or gangrene (principal); K29.70 Gastritis, unspecified, without bleeding; K29.80 Duodenitis without bleeding; I71.40 Abdominal aortic aneurysm, without rupture, unspecified; I25.10 Atherosclerotic heart disease of native coronary artery without angina pectoris; I10 Essential (primary) hypertension; K21.9 Gastro-esophageal reflux disease without esophagitis; M19.90 Unspecified osteoarthritis, unspecified site; F41.9 Anxiety disorder, unspecified; F32.A Depression, unspecified; J44.9 Chronic obstructive pulmonary disease, unspecified; N40.0 Benign prostatic hyperplasia without lower urinary tract symptoms; F17.210 Nicotine dependence, cigarettes, uncomplicated; Z85.118 Personal history of other malignant neoplasm of bronchus and lung; Z85.01 Personal history of malignant neoplasm of esophagus; Z92.21 Personal history of antineoplastic chemotherapy; Z92.3 Personal history of irradiation; Z88.6 Allergy status to analgesic agent; Z79.51 Long term (current) use of inhaled steroids; Z79.82 Long term (current) use of aspirin; Z79.899 Other long term (current) drug therapy; Z82.49 Family history of ischemic heart disease and other diseases of the circulatory system
CPT/HCPCS: 43239; 88305; J3010

== ENCOUNTER → 2023-01-20 | Outpatient (CLI) | payer MEDICARE, OTHER ==
[~2023-01-20] MED LIST changes: +MULT-90 PO; -NS 1,000 ML IV ONE; +OMEP40CA4 PO; +SERT150C PO; +VENTAER INH
== END ==
LOC: M RAD 12:40
PROVIDERS: ATTEND General Practice
DX: C34.11 Malignant neoplasm of upper lobe, right bronchus or lung (principal); J43.9 Emphysema, unspecified; I70.0 Atherosclerosis of aorta; I25.10 Atherosclerotic heart disease of native coronary artery without angina pectoris; Z95.828 Presence of other vascular implants and grafts; J98.4 Other disorders of lung

== ENCOUNTER → 2023-02-03 | Outpatient (CLI) | payer MEDICARE, OTHER | LOC: M ONCR 12:39 | PROVIDERS: ATTEND General Practice | DX: Z08 Encounter for follow-up examination after completed treatment for malignant neoplasm (principal); Z85.01 Personal history of malignant neoplasm of esophagus; Z85.110 Personal history of malignant carcinoid tumor of bronchus and lung; Z71.2 Person consulting for explanation of examination or test findings; Z79.51 Long term (current) use of inhaled steroids; Z79.82 Long term (current) use of aspirin; Z79.899 Other long term (current) drug therapy; Z87.891 Personal history of nicotine dependence; Z88.6 Allergy status to analgesic agent; Z92.21 Personal history of antineoplastic chemotherapy; Z92.3 Personal history of irradiation ==

== ENCOUNTER → 2023-03-05 | Outpatient (CLI) | payer OTHER | LOC: M PAIN 09:30 | PROVIDERS: ATTEND Nurse Practitioner Family | DX: M46.1 Sacroiliitis, not elsewhere classified (principal); G89.29 Other chronic pain; J44.9 Chronic obstructive pulmonary disease, unspecified; M54.2 Cervicalgia; M81.0 Age-related osteoporosis without current pathological fracture; Z85.118 Personal history of other malignant neoplasm of bronchus and lung; N18.9 Chronic kidney disease, unspecified; L82.1 Other seborrheic keratosis; J96.11 Chronic respiratory failure with hypoxia; F17.200 Nicotine dependence, unspecified, uncomplicated; Z79.891 Long term (current) use of opiate analgesic; Z79.82 Long term (current) use of aspirin; Z79.899 Other long term (current) drug therapy; Z88.6 Allergy status to analgesic agent; Z88.8 Allergy status to other drugs, medicaments and biological substances; Z85.09 Personal history of malignant neoplasm of other digestive organs ==

== ENCOUNTER → 2023-05-01 | Outpatient (CLI) | payer MEDICARE, OTHER | LOC: M PLAIMG 08:32 | PROVIDERS: ATTEND Nurse Practitioner Family | DX: M46.1 Sacroiliitis, not elsewhere classified (principal); I71.33 Infrarenal abdominal aortic aneurysm, ruptured ==

== ENCOUNTER → 2023-05-08 | Outpatient (CLI) | payer OTHER | LOC: M PAIN 09:30 | PROVIDERS: ATTEND Nurse Practitioner Family | DX: M46.1 Sacroiliitis, not elsewhere classified (principal); M96.1 Postlaminectomy syndrome, not elsewhere classified; G89.29 Other chronic pain; M81.0 Age-related osteoporosis without current pathological fracture; M54.2 Cervicalgia; N18.9 Chronic kidney disease, unspecified; L82.1 Other seborrheic keratosis; J96.11 Chronic respiratory failure with hypoxia; F17.200 Nicotine dependence, unspecified, uncomplicated; Z85.118 Personal history of other malignant neoplasm of bronchus and lung; Z85.01 Personal history of malignant neoplasm of esophagus; Z79.891 Long term (current) use of opiate analgesic; Z79.82 Long term (current) use of aspirin; Z79.899 Other long term (current) drug therapy; Z88.6 Allergy status to analgesic agent; Z88.8 Allergy status to other drugs, medicaments and biological substances ==

== ENCOUNTER → 2023-07-28 | Outpatient (CLI) | payer OTHER, MEDICARE | LOC: M PLAIMG 10:52 | PROVIDERS: ATTEND General Practice | DX: C34.90 Malignant neoplasm of unspecified part of unspecified bronchus or lung (principal) ==

== ENCOUNTER → 2023-08-04 | Outpatient (CLI) | payer OTHER, MEDICARE | LOC: M ONCR 11:18 | PROVIDERS: ATTEND General Practice | DX: C34.11 Malignant neoplasm of upper lobe, right bronchus or lung (principal); R91.1 Solitary pulmonary nodule; R53.83 Other fatigue; R63.0 Anorexia; F17.210 Nicotine dependence, cigarettes, uncomplicated; Z71.2 Person consulting for explanation of examination or test findings; Z72.89 Other problems related to lifestyle; Z79.51 Long term (current) use of inhaled steroids; Z79.82 Long term (current) use of aspirin; Z79.899 Other long term (current) drug therapy; Z85.01 Personal history of malignant neoplasm of esophagus; Z88.6 Allergy status to analgesic agent; Z92.3 Personal history of irradiation ==

== ENCOUNTER → 2023-10-05 | Outpatient (CLI) | payer MEDICARE, OTHER ==
[~2023-10-05] MED LIST changes: +LORA1TAB23 PO
== END ==
LOC: M PLARAD 09:37
PROVIDERS: ATTEND General Practice
DX: C34.11 Malignant neoplasm of upper lobe, right bronchus or lung (principal); R91.8 Other nonspecific abnormal finding of lung field
CPT/HCPCS: 78815; A9552

== ENCOUNTER → 2023-10-05 | Outpatient (CLI) | payer OTHER | LOC: M PAIN 16:00 | PROVIDERS: ATTEND Nurse Practitioner Family | DX: M54.50 Low back pain, unspecified (principal); M46.1 Sacroiliitis, not elsewhere classified; M96.1 Postlaminectomy syndrome, not elsewhere classified; G89.29 Other chronic pain; M81.0 Age-related osteoporosis without current pathological fracture; M54.2 Cervicalgia ==

== ENCOUNTER 2023-10-11 12:39 | Emergency (ER) | payer MEDICARE, OTHER ==
[~2023-10-11] VITALS: Ht 172.7 cm; Wt 55.4 kg
[2023-10-11 13:02] VITALS: TEMP 97.3
[2023-10-11] MEDS: LIDOCAINE 4% CREAM 5GM (LMX4) TOP ONE (13:41)
[2023-10-11 13:51] LABS: BASO % 0.1 % (0.0-1.0); HEMATOCRIT 38.2 % (42.0-52.0); HEMOGLOBIN 12.1 g/dl (13.5-17.5); LYMPH # 1.5 10^3/uL (1.5-5.0); LYMPH % 11.3 % (24.0-44.0); MEAN CORPUSCULAR HEMOGLOBIN 30.5 pg (27.0-33.0); MEAN CORPUSCULAR HGB CONC 31.7 g/dl (32.0-36.5); MEAN CORPUSCULAR VOLUME 96.2 fl (80.0-96.0); MONO # 0.7 10^3/uL (0.0-0.8); MONO % 4.9 % (2.0-8.0); NEUTROPHILS # 11.1 10^3/uL (1.5-8.5); PLATELET COUNT, AUTOMATED 251 10^3/uL (150-450); RED BLOOD COUNT 3.97 10^6/uL (4.30-6.10); WHITE BLOOD COUNT 13.4 10^3/uL (4.0-10.0)
[2023-10-11 14:05] LABS: CK-MB VALUE MASS 12.1 NG/ML (<3.6)
[2023-10-11] MEDS: NS 1,000 ML IV ONE (14:05)
[2023-10-11 14:07] LABS: ALBUMIN 3.1 G/DL (3.2-5.2); ALKALINE PHOSPHATASE 71 U/L (46-116); ALT/SGPT 24 U/L (7.0-40); AST/SGOT 81 U/L (<34); BILIRUBIN,DIRECT 0.1 MG/DL (<0.4); BILIRUBIN,TOTAL 0.3 MG/DL (0.3-1.2); BLOOD UREA NITROGEN 42 MG/DL (9-23); CALCIUM LEVEL 8.6 MG/DL (8.3-10.6); CARBON DIOXIDE LEVEL 30 MMOL/L (20-31); CHLORIDE LEVEL 99 MMOL/L (98-107); CREATININE FOR GFR 1.14 MG/DL (0.70-1.30); GLOMERULAR FILTRATION RATE > 60.0 (>42); GLUCOSE, FASTING 95 MG/DL (74-106); POTASSIUM SERUM 4.2 MMOL/L (3.5-5.1); SODIUM LEVEL 137 MMOL/L (136-145)
[2023-10-11 14:09] LABS: THYROXINE (T4) 4.8 UG/DL (4.5-10.9)
[2023-10-11 14:11] LABS: CPK CREATINE PHOSPHOKINASE 369 U/L (46-171); MB/CK RELATIVE INDEX 3.27 (< OR =4)
[2023-10-11] MEDS: LIDOCAINE 2% 5ML JELLY UROJET TOP ONE (14:20)
[2023-10-11 14:27] LABS: VENOUS PH 7.327 UNITS (7.330-7.430)
[2023-10-11 14:28] LABS: VENOUS BASE EXCESS -0.6 (-2.0-2.0); VENOUS HCO3 25.9 MMOL/L (23.0-27.0); VENOUS O2 SATURATION 86.4 % (60.0-80.0); VENOUS PARTIAL PRESSURE CO2 50.6 mmHg (38.0-50.0); VENOUS PARTIAL PRESSURE O2 56.4 mmHg (30.0-50.0); VENOUS STANDARD HCO3 23.7 MMOL/L; VENOUS TOTAL CO2 27.5 MMOL/L (24.0-28.0)
[2023-10-11 15:00] LABS: CK-MB VALUE MASS 12.3 NG/ML (<3.6)
[2023-10-11 15:01] LABS: MB/CK RELATIVE INDEX 3.53 (< OR =4)
[2023-10-11] MEDS ORDERED: ISOVUE-370 76% 100ML VIAL As Ordered ONE (15:15)
[2023-10-11] MEDS: cefTRIAXone SOD 2 GM in D5W MINI-BAG PLUS 50 ML IV ONE (16:36)
[2023-10-11] MEDS ORDERED: ROSU40TA4 PO (16:50)
[2023-10-11] MEDS ORDERED: SPIR1CAP INH (16:50)
[2023-10-11] MEDS: ASPIRIN 81MG CHEW TABLET PO ONE (17:37)
[2023-10-11 18:19] LABS: INR 1.01; PARTIAL THROMBOPLASTIN TIME 31.2 SECONDS (24.8-34.2)
[2023-10-11] MEDS: HEPARIN SOD (PORCINE) 5000UNITS/ML 1ML VIAL/SYRINGE IV ONE (18:37)
[2023-10-11] MEDS: HEPARIN DRIP 25,000 UNITS in IV 1 EA IV SCH (18:39)
[2023-10-11] MEDS: dexAMETHasone 20MG/5ML VIAL IV ONE (18:43)
[2023-10-11 22:41] VITALS: BP 151/86; O2SAT 96
== END 2023-10-11 22:45 | disposition short-term general hospital (02) ==
LOC: EDBD 12:39 → M ED 12:39
DX: U07.1 COVID-19 (principal); J12.82 Pneumonia due to coronavirus disease 2019; J96.11 Chronic respiratory failure with hypoxia; I21.4 Non-ST elevation (NSTEMI) myocardial infarction; Z85.118 Personal history of other malignant neoplasm of bronchus and lung; J44.9 Chronic obstructive pulmonary disease, unspecified; N18.9 Chronic kidney disease, unspecified; Z85.828 Personal history of other malignant neoplasm of skin; F17.200 Nicotine dependence, unspecified, uncomplicated; Z79.82 Long term (current) use of aspirin; Z79.899 Other long term (current) drug therapy; Z88.6 Allergy status to analgesic agent
CPT/HCPCS: 51701; 70450; 71045; 71275; 74177; 80048; 80076; 81001; 82550; 82553; 82803; 83605; 83880; 84436; 84443; 84484; 85025; 85610; 85730; 87040; 87486; 87581; 87633; 87798; 93005; 93041; 94760; 96361; 96365; 96366; 96375; 99285; J0696; J1100; Q9967

== ENCOUNTER 2023-10-29 11:31 | Emergency (ER) | payer OTHER, MEDICARE ==
[~2023-10-29] VITALS: Ht 170.2 cm; Wt 128.0 kg
[~2023-10-29 11:31] MED LIST changes: +ROSU40TA4 PO; +SPIR1CAP INH
[2023-10-29] MEDS ORDERED: FOAM1BAN TP (13:10)
[2023-10-29] MEDS: PERCOCET 5MG/325MG TAB PO ONE (13:29)
[2023-10-29 13:45] VITALS: BP 130/81; TEMP 97.2; O2SAT 96
== END 2023-10-29 13:49 | disposition home or self-care (01) ==
LOC: M ED 11:31
DX: L89.152 Pressure ulcer of sacral region, stage 2 (principal); I10 Essential (primary) hypertension; J44.9 Chronic obstructive pulmonary disease, unspecified; Z99.81 Dependence on supplemental oxygen; Z85.118 Personal history of other malignant neoplasm of bronchus and lung; Z79.82 Long term (current) use of aspirin; Z79.899 Other long term (current) drug therapy; Z88.6 Allergy status to analgesic agent

== ENCOUNTER → 2023-11-02 | Outpatient (CLI) | payer OTHER, MEDICARE ==
[~2023-11-02] MED LIST changes: +FLOM0.4C39 PO; +FOAM1BAN TP; +LIDOCAINE 1% MDV 20ML VIAL As Ordered ONE
[2023-11-02 12:10] VITALS: TEMP 99.1
[2023-11-02 12:47] LABS: HEMATOCRIT 32.4 % (42.0-52.0); HEMOGLOBIN 10.5 g/dl (13.5-17.5); MEAN CORPUSCULAR HEMOGLOBIN 30.8 pg (27.0-33.0); MEAN CORPUSCULAR HGB CONC 32.4 g/dl (32.0-36.5); PLATELET COUNT, AUTOMATED 306 10^3/uL (150-450); RED BLOOD COUNT 3.41 10^6/uL (4.30-6.10); WHITE BLOOD COUNT 9.6 10^3/uL (4.0-10.0)
[2023-11-02 13:05] LABS: INR 0.98; PROTHROMBIN TIME 12.7 SECONDS (12.5-14.5)
[2023-11-02 13:18] LABS: ALBUMIN 2.6 G/DL (3.2-5.2); ALKALINE PHOSPHATASE 83 U/L (46-116); ALT/SGPT 18 U/L (7.0-40); AST/SGOT 19 U/L (<34); BILIRUBIN,TOTAL 0.3 MG/DL (0.3-1.2); BLOOD UREA NITROGEN 16 MG/DL (9-23); CALCIUM LEVEL 8.8 MG/DL (8.3-10.6); CARBON DIOXIDE LEVEL 31 MMOL/L (20-31); CHLORIDE LEVEL 103 MMOL/L (98-107); CREATININE FOR GFR 0.88 MG/DL (0.70-1.30); GLOMERULAR FILTRATION RATE > 60.0 (>42); GLUCOSE, FASTING 102 MG/DL (74-106); POTASSIUM SERUM 3.8 MMOL/L (3.5-5.1); SODIUM LEVEL 136 MMOL/L (136-145); TOTAL PROTEIN 5.5 G/DL (5.7-8.2)
[2023-11-02 15:45] VITALS: BP 155/90; O2SAT 98
== END ==
LOC: M IRPRO 11:49
PROVIDERS: ATTEND General Practice
DX: C78.7 Secondary malignant neoplasm of liver and intrahepatic bile duct (principal); C34.90 Malignant neoplasm of unspecified part of unspecified bronchus or lung

== ENCOUNTER → 2023-11-12 | Outpatient (CLI) | payer OTHER ==
[~2023-11-12] MED LIST changes: +HYDR25TA87 PO; +IPRA0.00 INH; +IPRA0.00 NEB; -LIDOCAINE 1% MDV 20ML VIAL As Ordered ONE; +THERTAB52 PO; +TREL1AER INH
== END ==
LOC: M RAD 10:36
PROVIDERS: ATTEND Nurse Practitioner Family
DX: M47.816 Spondylosis without myelopathy or radiculopathy, lumbar region (principal); M54.50 Low back pain, unspecified

== ENCOUNTER 2023-11-13 11:17 | Observation (INO) | payer OTHER ==
[~2023-11-13] VITALS: Ht 170.2 cm; Wt 45.5 kg
[~2023-11-13 11:17] MED LIST changes: -HYDR25TA87 PO; -IPRA0.00 INH; -IPRA0.00 NEB; -THERTAB52 PO; -TREL1AER INH
[2023-11-13 12:05] LABS: BASO # 0.1 10^3/uL (0.0-0.2); BASO % 0.5 % (0.0-1.0); EOS # 0.1 10^3/uL (0.0-0.5); EOS % 1.2 % (0.0-3.0); HEMOGLOBIN 9.8 g/dl (13.5-17.5); LYMPH # 1.2 10^3/uL (1.5-5.0); LYMPH % 12.6 % (24.0-44.0); MEAN CORPUSCULAR HEMOGLOBIN 29.7 pg (27.0-33.0); MEAN CORPUSCULAR HGB CONC 30.6 g/dl (32.0-36.5); MONO # 0.6 10^3/uL (0.0-0.8); MONO % 6.1 % (2.0-8.0); NEUTROPHILS # 7.7 10^3/uL (1.5-8.5); NEUTROPHILS % 78.7 % (36.0-66.0); PLATELET COUNT, AUTOMATED 354 10^3/uL (150-450); WHITE BLOOD COUNT 9.8 10^3/uL (4.0-10.0)
[2023-11-13] MEDS ORDERED: ISOVUE-370 76% 100ML VIAL As Ordered ONE (12:10)
[2023-11-13 12:28] LABS: CK-MB VALUE MASS 2.5 NG/ML (<3.6); ETHYL ALCOHOL (ETHANOL) < 0.003 % (0.000-0.010)
[2023-11-13 12:29] LABS: BLOOD UREA NITROGEN 18 MG/DL (9-23); CALCIUM LEVEL 8.8 MG/DL (8.3-10.6); CARBON DIOXIDE LEVEL 30 MMOL/L (20-31); CHLORIDE LEVEL 107 MMOL/L (98-107); GLOMERULAR FILTRATION RATE > 60.0 (>42); GLUCOSE, FASTING 105 MG/DL (74-106); MAGNESIUM LEVEL 1.5 MG/DL (1.8-2.4); POTASSIUM SERUM 4.2 MMOL/L (3.5-5.1); SODIUM LEVEL 139 MMOL/L (136-145)
[2023-11-13 12:30] LABS: CPK CREATINE PHOSPHOKINASE 43 U/L (46-171); MB/CK RELATIVE INDEX 5.81 (< OR =4)
[2023-11-13 12:31] LABS: THYROID STIMULATING HORMONE 3.703 uIU/ML (0.55-4.78)
[2023-11-13 12:32] LABS: FREE T4 0.83 NG/DL (0.89-1.76)
[2023-11-13 12:49] LABS: INR 1.01; PARTIAL THROMBOPLASTIN TIME 29.6 SECONDS (24.8-34.2)
[2023-11-13 13:31] LABS: CK-MB VALUE MASS 2.5 NG/ML (<3.6)
[2023-11-13 13:32] LABS: MB/CK RELATIVE INDEX 4.62 (< OR =4)
[2023-11-13] MEDS: NS 500 ML IV ONE (13:49)
[2023-11-13] MEDS ORDERED: THERTAB52 PO (14:47)
[2023-11-13] MEDS ORDERED: HYDR25TA87 PO (14:47)
[2023-11-13] MEDS ORDERED: TREL1AER INH (14:53)
[2023-11-13] MEDS ORDERED: IPRA0.00 INH (14:55)
[2023-11-13] MEDS ORDERED: HOME MED LIST COMPLETE! XX SCH (15:00)
[2023-11-13 16:50] LABS: PROCALCITONIN 0.07 ng/ml
[2023-11-13] MEDS: MORPHINE 2 MG/ML 1ML VIAL IV ONE (18:14)
[2023-11-13 19:11] LABS: RSV AMPLIFICATION NEGATIVE (NEGATIVE)
[2023-11-13] MEDS ORDERED: IPRATROPIUM 0.5MG/ALBUTEROL 2.5MG INH SOL UD 3ML (DUONEB) INH PRN (19:15)
[2023-11-13] MEDS ORDERED: MOM 30ML SUSPENSION UDC PO PRN (19:15)
[2023-11-13] MEDS ORDERED: GABAPENTIN 300 MG CAP PO PRN (19:15)
[2023-11-13] MEDS ORDERED: ACETAMINOPHEN TAB 650MG DOSE (2X325MG) PO PRN (19:15)
[2023-11-13] MEDS: DOCUSATE SODIUM 100MG CAPSULE PO SCH (21:00)
[2023-11-13] MEDS: ROSUVASTATIN 10 MG TAB (CRESTOR) PO SCH (23:22)
[2023-11-13] MEDS: HEPARIN SOD (PORCINE) 5000UNITS/ML 1ML VIAL/SYRINGE SC SCH (23:23)
[2023-11-13 23:45] VITALS: BP 148/70; TEMP 97.3; O2SAT 96
[2023-11-14 05:48] LABS: HEMATOCRIT 30.4 % (42.0-52.0); HEMOGLOBIN 9.7 g/dl (13.5-17.5); MEAN CORPUSCULAR HEMOGLOBIN 30.6 pg (27.0-33.0); MEAN CORPUSCULAR VOLUME 95.9 fl (80.0-96.0); RED BLOOD COUNT 3.17 10^6/uL (4.30-6.10); WHITE BLOOD COUNT 7.5 10^3/uL (4.0-10.0)
[2023-11-14 05:49] LABS: MEAN CORPUSCULAR HGB CONC 31.9 g/dl (32.0-36.5); PLATELET COUNT, AUTOMATED 384 10^3/uL (150-450)
[2023-11-14 06:11] LABS: BLOOD UREA NITROGEN 12 MG/DL (9-23); CALCIUM LEVEL 9.1 MG/DL (8.3-10.6); CARBON DIOXIDE LEVEL 31 MMOL/L (20-31); CHLORIDE LEVEL 102 MMOL/L (98-107); CREATININE FOR GFR 0.76 MG/DL (0.70-1.30); GLOMERULAR FILTRATION RATE > 60.0 (>42); GLUCOSE, FASTING 83 MG/DL (74-106); MAGNESIUM LEVEL 1.5 MG/DL (1.8-2.4); POTASSIUM SERUM 4.5 MMOL/L (3.5-5.1); SODIUM LEVEL 137 MMOL/L (136-145)
[2023-11-14] MEDS: MAG SULF 1GM/100ML (MAG RUN) 1 GM in IV 1 EA IV SCH (07:56)
[2023-11-14 08:00] VITALS: BP 135/74; TEMP 98; O2SAT 98
[2023-11-14] MEDS: ADVAIR HFA 115/21MCG INHALER INH SCH (08:33)
[2023-11-14] MEDS: TIOTROPIUM INHALER/CAPSULE (SPIRIVA) INH SCH (08:33)
[2023-11-14] MEDS: SERTRALINE 100 MG TAB PO SCH (08:44)
[2023-11-14] MEDS: TAMSULOSIN 0.4 MG CAP PO SCH (08:44)
[2023-11-14] MEDS: ASPIRIN 81MG ENTERIC TABLET PO SCH (08:44)
[2023-11-14] MEDS: OMEPRAZOLE 20MG CAP PO SCH (08:44)
[2023-11-14] MEDS: oxyCODONE 5MG TAB PO PRN (09:16)
[2023-11-14] MEDS ORDERED: IPRA0.00 NEB (11:12)
[2023-11-14 12:50] VITALS: BP 123/75; O2SAT 97
== END 2023-11-14 14:30 | disposition home or self-care (01) ==
LOC: EDBD 11:17 → M ED 11:17 → M ED INP 11:18 → M PCU 21:32
PROVIDERS: ADMIT Student in an Organized Health Care Education/Training Program; ATTEND Student in an Organized Health Care Education/Training Program
DX: R55 Syncope and collapse (principal); R25.8 Other abnormal involuntary movements; I65.23 Occlusion and stenosis of bilateral carotid arteries; J98.11 Atelectasis; J90 Pleural effusion, not elsewhere classified; J44.9 Chronic obstructive pulmonary disease, unspecified; B34.2 Coronavirus infection, unspecified; Z99.81 Dependence on supplemental oxygen; F32.A Depression, unspecified; C78.7 Secondary malignant neoplasm of liver and intrahepatic bile duct; C34.90 Malignant neoplasm of unspecified part of unspecified bronchus or lung; C15.9 Malignant neoplasm of esophagus, unspecified; M81.0 Age-related osteoporosis without current pathological fracture; N18.9 Chronic kidney disease, unspecified; J96.11 Chronic respiratory failure with hypoxia; I67.1 Cerebral aneurysm, nonruptured; N40.0 Benign prostatic hyperplasia without lower urinary tract symptoms; Z88.8 Allergy status to other drugs, medicaments and biological substances; Z79.899 Other long term (current) drug therapy; Z79.82 Long term (current) use of aspirin; Z79.51 Long term (current) use of inhaled steroids; F17.200 Nicotine dependence, unspecified, uncomplicated
CPT/HCPCS: 36415; 70450; 70496; 70498; 71045; 71275; 74177; 80047; 80048; 81001; 82077; 82550; 82553; 83605; 83735; 84145; 84439; 84443; 84484; 85025; 85027; 85610; 85730; 86850; 86900; 86901; 87426; 87631; 93005; 93041; 93306; 94664; 94760; 96365; 96366; 96372; 96375; 97161; 99285; G0378; J3475; Q9967

== ENCOUNTER → 2023-12-01 | Outpatient (CLI) | payer OTHER ==
[~2023-12-01] MED LIST changes: +ADV500INH INH; +ALBU2.5V10 INH; +BUPR150T12 PO; +CLOP75TA99 PO; +HYDR25TA87 PO; +IPRA0.00 INH; +IPRA0.00 NEB; +SPIR12.9 INH; +THERTAB52 PO; +TREL1AER INH
== END ==
LOC: M ONCR 13:42
PROVIDERS: ATTEND General Practice
DX: C78.7 Secondary malignant neoplasm of liver and intrahepatic bile duct (principal); C78.1 Secondary malignant neoplasm of mediastinum; L89.90 Pressure ulcer of unspecified site, unspecified stage; Z85.01 Personal history of malignant neoplasm of esophagus; Z85.118 Personal history of other malignant neoplasm of bronchus and lung; F17.210 Nicotine dependence, cigarettes, uncomplicated; Z72.89 Other problems related to lifestyle; Z86.16 Personal history of COVID-19; Z88.6 Allergy status to analgesic agent; Z79.51 Long term (current) use of inhaled steroids; Z79.899 Other long term (current) drug therapy; Z71.2 Person consulting for explanation of examination or test findings; Z79.82 Long term (current) use of aspirin; Z92.21 Personal history of antineoplastic chemotherapy; Z92.3 Personal history of irradiation

== ENCOUNTER 2023-12-04 11:00 | Inpatient (IN) | payer OTHER ==
[~2023-12-04] VITALS: Ht 170.2 cm; Wt 60.0 kg
[~2023-12-04 11:00] MED LIST changes: -ADV500INH INH; -ALBU2.5V10 INH; -BUPR150T12 PO; -CLOP75TA99 PO; -SPIR12.9 INH
[2023-12-04 11:37] LABS: VENOUS BASE EXCESS 2.3 (-2.0-2.0); VENOUS HCO3 30.2 MMOL/L (23.0-27.0); VENOUS O2 SATURATION 67.1 % (60.0-80.0); VENOUS PARTIAL PRESSURE CO2 63.3 mmHg (38.0-50.0); VENOUS PARTIAL PRESSURE O2 36.2 mmHg (30.0-50.0); VENOUS PH 7.296 UNITS (7.330-7.430); VENOUS STANDARD HCO3 25.9 MMOL/L; VENOUS TOTAL CO2 32.1 MMOL/L (24.0-28.0)
[2023-12-04 11:43] LABS: BASO # 0.1 10^3/uL (0.0-0.2); BASO % 0.4 % (0.0-1.0); EOS # 0.1 10^3/uL (0.0-0.5); EOS % 0.6 % (0.0-3.0); HEMATOCRIT 33.3 % (42.0-52.0); HEMOGLOBIN 10.5 g/dl (13.5-17.5); LYMPH # 1.4 10^3/uL (1.5-5.0); LYMPH % 10.7 % (24.0-44.0); MEAN CORPUSCULAR HEMOGLOBIN 30.4 pg (27.0-33.0); MEAN CORPUSCULAR HGB CONC 31.5 g/dl (32.0-36.5); MEAN CORPUSCULAR VOLUME 96.5 fl (80.0-96.0); MONO # 0.7 10^3/uL (0.0-0.8); MONO % 5.1 % (2.0-8.0); NEUTROPHILS # 10.5 10^3/uL (1.5-8.5); NEUTROPHILS % 82.9 % (36.0-66.0); PLATELET COUNT, AUTOMATED 351 10^3/uL (150-450); RED BLOOD COUNT 3.45 10^6/uL (4.30-6.10); WHITE BLOOD COUNT 12.7 10^3/uL (4.0-10.0)
[2023-12-04 12:00] LABS: INR 0.99; PARTIAL THROMBOPLASTIN TIME 27.1 SECONDS (24.8-34.2); PROTHROMBIN TIME 12.8 SECONDS (12.5-14.5)
[2023-12-04 12:11] LABS: ALBUMIN 2.8 G/DL (3.2-5.2); ALKALINE PHOSPHATASE 126 U/L (46-116); ALT/SGPT 17 U/L (7.0-40); AMYLASE 54 U/L (30-118); AST/SGOT 46 U/L (<34); BILIRUBIN,DIRECT 0.1 MG/DL (<0.4); BILIRUBIN,TOTAL 0.3 MG/DL (0.3-1.2); BLOOD UREA NITROGEN 21 MG/DL (9-23); CALCIUM LEVEL 9.3 MG/DL (8.3-10.6); CARBON DIOXIDE LEVEL 31 MMOL/L (20-31); CHLORIDE LEVEL 104 MMOL/L (98-107); CREATININE FOR GFR 1.02 MG/DL (0.70-1.30); GLOMERULAR FILTRATION RATE > 60.0 (>42); GLUCOSE, FASTING 118 MG/DL (74-106); POTASSIUM SERUM 4.6 MMOL/L (3.5-5.1); SODIUM LEVEL 136 MMOL/L (136-145); TOTAL PROTEIN 5.6 G/DL (5.7-8.2)
[2023-12-04] MEDS: NS 1,720 ML in IV 1 EA IV ONE (12:21)
[2023-12-04] MEDS: cefTRIAXone SOD 2 GM in D5W MINI-BAG PLUS 50 ML IV ONE (12:45)
[2023-12-04 12:50] LABS: PROCALCITONIN 0.15 ng/ml
[2023-12-04 13:17] LABS: APPEARANCE, URINE CLEAR (CLEAR); BACTERIA, URINE AUTO NEGATIVE (NEGATIVE); BILIRUBIN, URINE AUTO NEGATIVE (NEGATIVE); BLOOD, URINE BLOOD NEGATIVE (NEGATIVE); COLOR, URINE YELLOW (YELLOW); GLUCOSE, URINE (UA) AUTO NEGATIVE (NEGATIVE); KETONE, URINE AUTO NEGATIVE (NEGATIVE); LEUKOCYTE ESTERASE, URINE AUTO NEGATIVE (NEGATIVE); MUCUS, URINE SMALL (NEGATIVE); NITRITE, URINE AUTO NEGATIVE (NEGATIVE); PROTEIN, URINE AUTO 1+ mg/dL (NEGATIVE); RBC, URINE AUTO 0 /HPF (0-3); SPECIFIC GRAVITY URINE AUTO 1.016 (1.002-1.035); SQUAMOUS EPITHELIAL CELL UR AU 0 /HPF (0-6); WBC, URINE AUTO 0 /HPF (0-3)
[2023-12-04] MEDS ORDERED: IPRA0.00 INH (13:56)
[2023-12-04] MEDS ORDERED: SPIR12.9 INH (13:56)
[2023-12-04] MEDS ORDERED: CLOP75TA99 PO (14:04)
[2023-12-04] MEDS ORDERED: ADV500INH INH (14:04)
[2023-12-04] MEDS ORDERED: ALBU2.5V10 INH (14:04)
[2023-12-04] MEDS ORDERED: BUPR150T12 PO (14:04)
[2023-12-04] MEDS ORDERED: HOME MED LIST COMPLETE! XX SCH (14:10)
[2023-12-04 14:34] LABS: ABG BASE EXCESS -2.6 (-2.0-2.0); ABG HCO3 23.3 MMOL/L (22.0-26.0); ABG O2 SATURATION 91.1 % (95.0-99.0); ABG PARTIAL PRESSURE CO2 45.1 mmHg (35.0-45.0); ABG PARTIAL PRESSURE O2 68.4 mmHg (75.0-100.0); ABG STANDARD HCO3 22.2 MMOL/L. (22.0-26.0); ABG TOTAL CO2 24.7 MMOL/L (23.0-31.0); ABG pH (ARTERIAL) 7.331 UNITS (7.350-7.450)
[2023-12-04] MEDS ORDERED: ACETAMINOPHEN 650MG SUPP PR PRN (15:45)
[2023-12-04] MEDS ORDERED: VANCOMYCIN HCL 1,000 MG, VIAL MATE ADAPTER 1 EACH in D5W 250 ML IV SCH (15:45)
[2023-12-04] MEDS: PANTOPRAZOLE 40MG VIAL IV SCH (16:28)
[2023-12-04] MEDS: NS 1,000 ML IV SCH (16:28)
[2023-12-04 16:54] LABS: INR 1.15; PARTIAL THROMBOPLASTIN TIME 27.8 SECONDS (24.8-34.2); PROTHROMBIN TIME 14.3 SECONDS (12.5-14.5)
[2023-12-04] MEDS: PIPERACILLIN/TAZOBACTAM SOD 3.375 GM in D5W MINI-BAG PLUS 50 ML IV SCH (17:16)
[2023-12-04 18:39] VITALS: BP 127/74; TEMP 98.8; O2SAT 96
[2023-12-04 18:40] VITALS: BP 127/74
[2023-12-04 19:00] VITALS: O2SAT 91
[2023-12-04] MEDS: DOXYCYCLINE HYCLATE 100 MG in D5W MINI-BAG PLUS 100 ML IV SCH (19:07)
[2023-12-04] MEDS: LEVALBUTEROL 1.25MG 0.5ML CONCENTRATE NEB NEB SCH (20:31)
[2023-12-04] MEDS: ADVAIR HFA 230/21MCG INHALER INH SCH (20:31)
[2023-12-04] MEDS: VANCOMYCIN HCL 750 MG, VIAL MATE ADAPTER 1 EACH in D5W 250 ML IV ONE ×2 (20:47→21:59)
[2023-12-04] MEDS: NICOTINE 21MG/24HR 1 EA TRANSDERMAL TD SCH (20:47)
[2023-12-04 20:53] VITALS: BP 120/60; TEMP 98.5; O2SAT 89
[2023-12-04 23:28] VITALS: BP 117/62
[2023-12-04] MEDS: LORazepam 2 MG/ML 1ML VIAL IV PRN (23:35)
[2023-12-04 23:38] VITALS: BP 117/62; TEMP 99.6; O2SAT 90
[2023-12-05] VITALS (19 sets, daily range): BP systolic 114–149; BP diastolic 58–77; TEMP 97.4–98.7; O2SAT 90–99
[2023-12-05 06:09] LABS: HEMATOCRIT 30.2 % (42.0-52.0); HEMOGLOBIN 9.5 g/dl (13.5-17.5); MEAN CORPUSCULAR HEMOGLOBIN 30.6 pg (27.0-33.0); MEAN CORPUSCULAR HGB CONC 31.5 g/dl (32.0-36.5); MEAN CORPUSCULAR VOLUME 97.4 fl (80.0-96.0); PLATELET COUNT, AUTOMATED 298 10^3/uL (150-450); WHITE BLOOD COUNT 11.6 10^3/uL (4.0-10.0)
[2023-12-05 06:38] LABS: ALBUMIN 2.4 G/DL (3.2-5.2); ALKALINE PHOSPHATASE 96 U/L (46-116); ALT/SGPT 15 U/L (7.0-40); AST/SGOT 54 U/L (<34); BILIRUBIN,TOTAL 0.6 MG/DL (0.3-1.2); BLOOD UREA NITROGEN 14 MG/DL (9-23); CALCIUM LEVEL 9.1 MG/DL (8.3-10.6); CARBON DIOXIDE LEVEL 29 MMOL/L (20-31); CHLORIDE LEVEL 100 MMOL/L (98-107); CREATININE FOR GFR 0.86 MG/DL (0.70-1.30); GLOMERULAR FILTRATION RATE > 60.0 (>42); GLUCOSE, FASTING 101 MG/DL (74-106); SODIUM LEVEL 134 MMOL/L (136-145)
[2023-12-05] MEDS: VANCOMYCIN HCL 750 MG, VIAL MATE ADAPTER 1 EACH in D5W 250 ML IV SCH (07:39)
[2023-12-05] MEDS: ENOXAPARIN 40MG/0.4ML SYRINGE (J1650 PER 10MG) SC SCH (08:01)
[2023-12-05] MEDS ORDERED: LORazepam 2 MG/ML 1ML VIAL IV PRN (09:00)
[2023-12-05] MEDS: IPRATROPIUM 0.5MG/ALBUTEROL 2.5MG INH SOL UD 3ML (DUONEB) NEB SCH (11:31)
[2023-12-05] MEDS: SODIUM CHLORIDE HYPERTONIC 3% 4ML NEB SOL INH SCH (11:31)
[2023-12-05] MEDS ORDERED: PROHANCE 279.3MG/ML 15ML VIAL As Ordered ONE (12:21)
[2023-12-05] MEDS ORDERED: cefTRIAXone SOD 2 GM in D5W MINI-BAG PLUS 50 ML IV SCH (13:00)
[2023-12-05] MEDS: MULTIVITAMIN -ADULT INJECTION 10 ML, FOLIC ACID 1 MG, THIAMINE INJection 100 MG in NS 1... IV SCH (14:38)
[2023-12-05] MEDS: ASPIRIN 300 MG SUPP PR SCH (16:32)
[2023-12-06] VITALS (21 sets, daily range): BP systolic 133–162; BP diastolic 76–92; TEMP 97.4–98.3; O2SAT 88–100
[2023-12-06 05:36] LABS: HEMATOCRIT 30.3 % (42.0-52.0); HEMOGLOBIN 9.7 g/dl (13.5-17.5); MEAN CORPUSCULAR HEMOGLOBIN 30.8 pg (27.0-33.0); MEAN CORPUSCULAR VOLUME 96.2 fl (80.0-96.0); PLATELET COUNT, AUTOMATED 327 10^3/uL (150-450); RED BLOOD COUNT 3.15 10^6/uL (4.30-6.10); WHITE BLOOD COUNT 11.1 10^3/uL (4.0-10.0)
[2023-12-06 06:07] LABS: ALBUMIN 2.4 G/DL (3.2-5.2); ALKALINE PHOSPHATASE 89 U/L (46-116); ALT/SGPT 13 U/L (7.0-40); AST/SGOT 46 U/L (<34); BILIRUBIN,TOTAL 0.6 MG/DL (0.3-1.2); BLOOD UREA NITROGEN 12 MG/DL (9-23); CALCIUM LEVEL 9.5 MG/DL (8.3-10.6); CARBON DIOXIDE LEVEL 28 MMOL/L (20-31); CHLORIDE LEVEL 100 MMOL/L (98-107); GLOMERULAR FILTRATION RATE > 60.0 (>42); GLUCOSE, FASTING 76 MG/DL (74-106); SODIUM LEVEL 135 MMOL/L (136-145); TOTAL PROTEIN 5.3 G/DL (5.7-8.2)
[2023-12-07] VITALS (28 sets, daily range): BP systolic 138–174; BP diastolic 68–89; TEMP 97–98.9; O2SAT 90–100
[2023-12-07 05:47] LABS: HEMATOCRIT 30.5 % (42.0-52.0); HEMOGLOBIN 9.8 g/dl (13.5-17.5); MEAN CORPUSCULAR HEMOGLOBIN 30.2 pg (27.0-33.0); MEAN CORPUSCULAR HGB CONC 32.1 g/dl (32.0-36.5); MEAN CORPUSCULAR VOLUME 94.1 fl (80.0-96.0); PLATELET COUNT, AUTOMATED 355 10^3/uL (150-450); RED BLOOD COUNT 3.24 10^6/uL (4.30-6.10); WHITE BLOOD COUNT 8.9 10^3/uL (4.0-10.0)
[2023-12-07 06:19] LABS: ALBUMIN 2.4 G/DL (3.2-5.2); ALKALINE PHOSPHATASE 86 U/L (46-116); ALT/SGPT 11 U/L (7.0-40); AST/SGOT 43 U/L (<34); BILIRUBIN,TOTAL 0.5 MG/DL (0.3-1.2); BLOOD UREA NITROGEN 8 MG/DL (9-23); CALCIUM LEVEL 9.2 MG/DL (8.3-10.6); CARBON DIOXIDE LEVEL 25 MMOL/L (20-31); CHLORIDE LEVEL 100 MMOL/L (98-107); CREATININE FOR GFR 0.72 MG/DL (0.70-1.30); GLOMERULAR FILTRATION RATE > 60.0 (>42); GLUCOSE, FASTING 67 MG/DL (74-106); POTASSIUM SERUM 3.6 MMOL/L (3.5-5.1); SODIUM LEVEL 136 MMOL/L (136-145); TOTAL PROTEIN 5.4 G/DL (5.7-8.2)
[2023-12-07 13:36] LABS: PH BODY FLUID 7.584 UNITS (NOT ESTABLISHED); SOURCE, BODY FLUID pH PLEURAL
[2023-12-07 14:18] LABS: APPEARANCE, BODY FLUID HAZY (CLEAR); PLEURAL FL COLOR PALE YELLOW (COLORLESS); SOURCE, BODY FLUID PLEURAL
[2023-12-07 15:59] LABS: SOURCE, BODY FLUID ALBUMIN PLEURAL
[2023-12-07 16:04] LABS: SOURCE, BODY FLUID GLUCOSE PLEURAL; SOURCE, BODY FLUID TRIG PLEURAL; TRIGLYCERIDE, BODY FLUID 24 MG/DL (NOT ESTABLISHED)
[2023-12-07 16:05] LABS: LDH, BODY FLUID 180 U/L (NOT ESTABLISHED); SOURCE, BODY FLUID LDH PLEURAL
[2023-12-07 16:06] LABS: AMYLASE, BODY FLUID 28 U/L (NOT ESTABLISHED); CHOLESTEROL, BODY FLUID 61 MG/DL (NOT ESTABLISHED); SOURCE, BODY FLUID AMYLASE PLEURAL; SOURCE, BODY FLUID CHOL PLEURAL; SOURCE, BODY FLUID TOT PROTEIN PLEURAL; TOTAL PROTEIN, BODY FLUID 2.9 G/DL (NOT ESTABLISHED)
[2023-12-07] MEDS: ADVAIR HFA 230/21MCG INHALER INH SCH (20:07)
[2023-12-07] MEDS: GABAPENTIN 300 MG CAP PO SCH (21:21)
[2023-12-08] VITALS (29 sets, daily range): BP systolic 80–121; BP diastolic 52–69; TEMP 98–98.2; O2SAT 87–100
[2023-12-08 06:31] LABS: HEMATOCRIT 31.8 % (42.0-52.0); HEMOGLOBIN 10.1 g/dl (13.5-17.5); MEAN CORPUSCULAR HEMOGLOBIN 29.9 pg (27.0-33.0); MEAN CORPUSCULAR HGB CONC 31.8 g/dl (32.0-36.5); MEAN CORPUSCULAR VOLUME 94.1 fl (80.0-96.0); PLATELET COUNT, AUTOMATED 397 10^3/uL (150-450); RED BLOOD COUNT 3.38 10^6/uL (4.30-6.10); WHITE BLOOD COUNT 7.1 10^3/uL (4.0-10.0)
[2023-12-08 07:01] LABS: ALBUMIN 2.5 G/DL (3.2-5.2); ALKALINE PHOSPHATASE 92 U/L (46-116); ALT/SGPT 14 U/L (7.0-40); AST/SGOT 34 U/L (<34); BILIRUBIN,TOTAL 0.4 MG/DL (0.3-1.2); BLOOD UREA NITROGEN 5 MG/DL (9-23); CARBON DIOXIDE LEVEL 26 MMOL/L (20-31); CHLORIDE LEVEL 101 MMOL/L (98-107); CREATININE FOR GFR 0.73 MG/DL (0.70-1.30); GLOMERULAR FILTRATION RATE > 60.0 (>42); GLUCOSE, FASTING 87 MG/DL (74-106); POTASSIUM SERUM 3.5 MMOL/L (3.5-5.1); SODIUM LEVEL 138 MMOL/L (136-145); TOTAL PROTEIN 5.4 G/DL (5.7-8.2)
[2023-12-08] MEDS: TIOTROPIUM INHALER/CAPSULE (SPIRIVA) INH SCH (07:08)
[2023-12-08] MEDS: ASPIRIN 81MG ENTERIC TABLET PO SCH (08:48)
[2023-12-08] MEDS: SERTRALINE HCL 50 MG TAB PO SCH (08:48)
[2023-12-08] MEDS: ATORVASTATIN 20 MG TAB PO SCH (08:49)
[2023-12-08] MEDS: TAMSULOSIN 0.4 MG CAP PO SCH (08:49)
[2023-12-08] MEDS: CLOPIDOGREL 75 MG TAB PO SCH (08:49)
[2023-12-08] MEDS: buPROPion **XL** TABLET 150MG (WELLBUTRIN XL) PO SCH (08:49)
[2023-12-08] MEDS: LEVALBUTEROL 1.25MG 0.5ML CONCENTRATE NEB NEB PRN (13:24)
[2023-12-08 14:32] LABS: ABG BASE EXCESS -0.2 (-2.0-2.0); ABG HCO3 25.3 MMOL/L (22.0-26.0); ABG O2 SATURATION 99.3 % (95.0-99.0); ABG PARTIAL PRESSURE CO2 45.1 mmHg (35.0-45.0); ABG PARTIAL PRESSURE O2 240.7 mmHg (75.0-100.0); ABG STANDARD HCO3 24.4 MMOL/L. (22.0-26.0); ABG TOTAL CO2 26.7 MMOL/L (23.0-31.0); ABG pH (ARTERIAL) 7.367 UNITS (7.350-7.450)
[2023-12-08] MEDS: NS 1,000 ML IV ONE (14:38)
[2023-12-08] MEDS: NS 1,000 ML IV SCH (14:41)
[2023-12-08 14:46] LABS: MEAN CORPUSCULAR HEMOGLOBIN 29.8 pg (27.0-33.0); MEAN CORPUSCULAR HGB CONC 31.3 g/dl (32.0-36.5); MEAN CORPUSCULAR VOLUME 95.2 fl (80.0-96.0); PLATELET COUNT, AUTOMATED 385 10^3/uL (150-450); RED BLOOD COUNT 3.36 10^6/uL (4.30-6.10); WHITE BLOOD COUNT 7.9 10^3/uL (4.0-10.0)
[2023-12-08] MEDS ORDERED: NS 1,000 ML IV ONE (15:00)
[2023-12-08 15:03] LABS: CPK CREATINE PHOSPHOKINASE 63 U/L (46-171); INR 1.05; PARTIAL THROMBOPLASTIN TIME 32.2 SECONDS (24.8-34.2); PROTHROMBIN TIME 13.3 SECONDS (12.5-14.5)
[2023-12-08 15:22] LABS: ALBUMIN 2.4 G/DL (3.2-5.2); ALKALINE PHOSPHATASE 90 U/L (46-116); ALT/SGPT 11 U/L (7.0-40); AST/SGOT 27 U/L (<34); BILIRUBIN,TOTAL 0.3 MG/DL (0.3-1.2); BLOOD UREA NITROGEN 8 MG/DL (9-23); CALCIUM LEVEL 9.8 MG/DL (8.3-10.6); CARBON DIOXIDE LEVEL 30 MMOL/L (20-31); CHLORIDE LEVEL 102 MMOL/L (98-107); CHOLESTEROL LEVEL 211 MG/DL (<200); CHOLESTEROL RISK RATIO 5.87 (<5); CK-MB VALUE MASS 2.2 NG/ML (<3.6); CREATININE FOR GFR 1.05 MG/DL (0.70-1.30); GLOMERULAR FILTRATION RATE > 60.0 (>42); GLUCOSE, FASTING 121 MG/DL (74-106); HDL CHOLESTEROL 35.9 MG/DL (>40); LDL CHOLESTEROL 148.5 MG/DL (<100); MAGNESIUM LEVEL 1.5 MG/DL (1.8-2.4); MB/CK RELATIVE INDEX 3.49 (< OR =4); NON-HDL-C 175.1 MG/DL; POTASSIUM SERUM 3.7 MMOL/L (3.5-5.1); SODIUM LEVEL 137 MMOL/L (136-145); TOTAL PROTEIN 5.2 G/DL (5.7-8.2); TRIGLYCERIDES LEVEL 133 MG/DL (<150)
[2023-12-08] MEDS: MAG SULF 1GM/100ML (MAG RUN) 1 GM in IV 1 EA IV SCH (15:39)
[2023-12-08 16:14] LABS: ABG BASE EXCESS -0.7 (-2.0-2.0); ABG HCO3 25.6 MMOL/L (22.0-26.0); ABG O2 SATURATION 91.4 % (95.0-99.0); ABG PARTIAL PRESSURE CO2 49.6 mmHg (35.0-45.0); ABG PARTIAL PRESSURE O2 62.7 mmHg (75.0-100.0); ABG STANDARD HCO3 23.8 MMOL/L. (22.0-26.0); ABG TOTAL CO2 27.1 MMOL/L (23.0-31.0)
[2023-12-08] MEDS ORDERED: LORazepam 2 MG/ML 1ML VIAL IV PRN (16:25)
[2023-12-08] MEDS ORDERED: ONDANSETRON 4MG ORAL DISINTEGRATING TAB PO PRN (16:25)
[2023-12-08] MEDS ORDERED: SCOPOLAMINE 1MG TRANSDERMAL PATCH TOP PRN (16:25)
[2023-12-08] MEDS: oxyCODONE 5MG TAB PO PRN (20:16)
[2023-12-08] MEDS: MORPHINE 10MG/0.5ML ORAL CONCENTRATE SOLUTION U/D SL PRN (23:54)
[2023-12-09] MEDS: oxyCODONE 5MG TAB PO PRN (21:40)
[2023-12-09 22:40] VITALS: O2SAT 96
[2023-12-10] MEDS ORDERED: ATIV1TAB10 PO (08:50)
[2023-12-10] MEDS ORDERED: HYOS125TA PO (08:50)
[2023-12-10] MEDS ORDERED: MORP1SOL5 PO (08:50)
[2023-12-10] MEDS ORDERED: ONDA4TAB6 PO (10:48)
[2023-12-10] MEDS ORDERED: TRAN1DIS4 TOP (10:48)
[2023-12-10] MEDS ORDERED: ATRO5DRO OP (10:48)
== END 2023-12-10 11:29 | disposition hospice, home (50) | DRG 871 ==
LOC: EDBD 11:00 → M ED 11:00 → M ED INP 15:33 → M PCU 18:18 → M MSPAV 12-08 20:24
PROVIDERS: ADMIT Internal Medicine; ATTEND Student in an Organized Health Care Education/Training Program
PROC: 0W9B3ZZ Drainage of Left Pleural Cavity, Percutaneous Approach (ICD-10-PCS; principal; 2023-12-07 12:00)
DX: A41.9 Sepsis, unspecified organism (principal); G93.41 Metabolic encephalopathy; I63.9 Cerebral infarction, unspecified; J18.9 Pneumonia, unspecified organism; J96.21 Acute and chronic respiratory failure with hypoxia; J96.22 Acute and chronic respiratory failure with hypercapnia; C78.7 Secondary malignant neoplasm of liver and intrahepatic bile duct; C78.1 Secondary malignant neoplasm of mediastinum; C34.11 Malignant neoplasm of upper lobe, right bronchus or lung; J90 Pleural effusion, not elsewhere classified; J98.19 Other pulmonary collapse; J44.0 Chronic obstructive pulmonary disease with (acute) lower respiratory infection; F17.210 Nicotine dependence, cigarettes, uncomplicated; I77.1 Stricture of artery; R13.10 Dysphagia, unspecified; L89.152 Pressure ulcer of sacral region, stage 2; I71.40 Abdominal aortic aneurysm, without rupture, unspecified; I67.1 Cerebral aneurysm, nonruptured; G89.29 Other chronic pain; E78.5 Hyperlipidemia, unspecified; I65.23 Occlusion and stenosis of bilateral carotid arteries; T42.6X5A Adverse effect of other antiepileptic and sedative-hypnotic drugs, initial encounter; I10 Essential (primary) hypertension; K21.9 Gastro-esophageal reflux disease without esophagitis; N40.0 Benign prostatic hyperplasia without lower urinary tract symptoms; I25.10 Atherosclerotic heart disease of native coronary artery without angina pectoris; I25.2 Old myocardial infarction; M48.00 Spinal stenosis, site unspecified; Z79.82 Long term (current) use of aspirin; Z79.51 Long term (current) use of inhaled steroids; Z79.899 Other long term (current) drug therapy; Z92.3 Personal history of irradiation; Z92.21 Personal history of antineoplastic chemotherapy; Z88.6 Allergy status to analgesic agent; Z86.16 Personal history of COVID-19; Z99.81 Dependence on supplemental oxygen; Z66 Do not resuscitate